=== PATIENT | female | born 1935 | race Caucasian/White ===

== ENCOUNTER 2020-04-17 13:49 | Outpatient (CLI) | payer MEDICARE, SELFPAY ==
--- NOTE | 2020-04-17 14:01 | XR_ITS ---
WS: [id number] SCREENING DEXA SCAN [employer] CLINICAL INFORMATION: POSTMENOPAUSAL OSTEOPOROSIS COMPARISON: None. FINDINGS: The L1-L4 bone mineral density measures 1.478 g/cm2. This corresponds to a T score score of 2.5 and Z score of 4.2. Left femoral neck bone mineral density measures 0.857 g/cm2. This corresponds to a T score of -1.2 an d Z score of 0.8. Right femoral neck bone mineral density measures 0.871 g/cm2. This corresponds to a T score -1.1of an d Z score of 0.9. Mean femoral neck bone mineral density measures 0.864 g/cm2. This corresponds to a T score of -1.1 an d Z score of 0.9. XR/XR DEXA axial skeleton* [id number] IMPRESSION: Normal bone mineralization lumbar spine. Osteopenia in the femoral necks. Patient's FRAX calculated 10 year probability for major osteoporotic fracture i s 28.0 % and osteoporotic hip fracture is 17.9%.
== END 2020-04-17 13:50 | disposition home or self-care (01) ==
LOC: RADWPI 13:59
PROVIDERS: Family Provider Family Medicine; PCP Family Medicine; Visit Provider Family Medicine
DX: M81.0 Age-related osteoporosis without current pathological fracture (principal); Z78.0 Asymptomatic menopausal state; M85.89 Other specified disorders of bone density and structure, multiple sites
CPT/HCPCS: 77080

== ENCOUNTER 2022-01-14 16:02 | Outpatient (CLI) | payer MEDICARE, SELFPAY ==
--- NOTE | 2022-01-14 16:17 | CT_ITS ---
WS: [id number] CT HEAD TECHNIQUE: Noncontrast CT of the head obtained from the skullbase to the vertex. CLINICAL INFORMATION: CVA COMPARISON: None. DLP: 981.[address] scans at [facility] use at least one of these dose optimization techniques: automated e xposure control; mA and/or kV adjustment per patient size (includes targeted exams where dose is matc hed to clinical indication); or iterative reconstruction. FINDINGS: No evidence of intracranial hemorrhage or mass effect. Ventricular system and basal cisterns are neumann nt. Moderate small vessel changes with moderate parenchymal volume loss. Benign calcification RIGHT g reater than LEFT basal ganglia. No extra-axial fluid collections. No evidence of mass or mass effect. Intracranial vascular calcification. A few tiny chronic lacunar infarcts in the basal ganglia. Tiny chronic lacunar infarcts RIGHT cerebellum and LEFT elidia.. Mild mucosal thickening in the paranasal sinuses. Mastoid air cells are well aerated.Normal visualize d soft tissues. CT/CT head wo con* [id number] IMPRESSION: 1. No evidence of intracranial hemorrhage or mass effect. 2. Moderate small vessel changes with moderate parenchymal volume loss. 3. No acute intracranial findings. Notified Mai MCLAUGHLIN at 01/14/2022 4:41 PM.
== END 2022-01-14 16:03 | disposition home or self-care (01) ==
LOC: RAD 16:05
PROVIDERS: PCP Family Medicine; Visit Provider Family Medicine
DX: I63.9 Cerebral infarction, unspecified (principal)
CPT/HCPCS: 70450

== ENCOUNTER 2022-07-30 13:38 | Outpatient (CLI) | payer MEDICARE, SELFPAY ==
--- NOTE | 2022-07-30 13:56 | USCV_ITS ---
Tiffanie Leija Age: 86 Gender: F : 1935 Exam Date: 07/30/2022 14:30 Ordering Phys: Jonny Godwin MD Technologist: [place] [facility] [place]: murmur BP: 120 / 71 HR: 73 Rhythm: Sinus Technical Quality: Adequate MEASUREMENTS (Male / Female) Normal Values 2D ECHO LV Diastolic Diameter PLAX 4.1 cm 4.2 - 5.9 / 3.9 - 5.3 cm LV Systolic Diameter PLAX 2.2 cm IVS Diastolic Thickness 1.2 cm 0.6 - 1.0 / 0.6 - 0.9 cm IVS Systolic Thickness 2.0 cm LVPW Diastolic Thickness 1.5 cm 0.6 - 1.0 / 0.6 - 0.9 cm LVPW Systolic Thickness 1.4 cm LVOT Diameter 2.0 cm LV Ejection Fraction 2D Teich 78.2 % LV Ejection Fraction MOD 2C 72.3 % LV Ejection Fraction 2C AL 72.0 % LA Diameter 3.4 cm Aorta at Sinotubular Diameter 2.2 cm M-MODE Aortic Annulus Diameter 3.8 cm LA Ao Ratio MM 0.9 MV E Point Septal Separation 0.9 cm DOPPLER AV Peak Velocity 107.0 cm/s LVOT Peak Velocity 86.0 cm/s AV Area Cont Eq vti 2.6 cm squared AV Area Cont Eq pk 2.6 cm squared MV Area PHT 5.1 cm squared Mitral E to A Ratio 0.6 MV E' Velocity 36.5 cm/s Mitral E to MV E' Ratio 9.5 Mitral E to LV E' Lateral Ratio 9.1 Mitral E to LV E' Septal Ratio 9.9 TR Peak Velocity 220.3 cm/s TR Peak Gradient 19.4 mmHg TV Peak E Velocity 110.0 cm/s Right Atrial Pressure 3.0 mmHg Pulmonary Artery Systolic Pressu 22.4 mmHg RV Acceleration Time 0.2 s FINDINGS Left Ventricle Normal left ventricular size and systolic function, EF 71 %. Mild left ventricular hypertrophy. No regional wall motion abnormalities. Grade I/IV diastolic dysfunction (abnormal relaxation filling pattern), normal to mildly elevated filling pressures. Right Ventricle The right ventricle is normal in size and function. Right Atrium The right atrium is normal in size. Left Atrium The left atrium is normal in size. Mitral Valve Thickened mitral valve. Mild mitral annular calcification. Mild mitral valve regurgitation. Aortic Valve Thickened aortic valve. Mild aortic valve regurgitation. Tricuspid Valve Trace tricuspid valve regurgitation. Pulmonic Valve No gross abnormalities noted Pericardium Normal pericardium without effusion. Aorta Normal ascending aorta dimension. IVC The inferior vena cava appears normal. CONCLUSIONS Normal left ventricular size and systolic function, EF 71 %. Mild left ventricular hypertrophy. No regional wall motion abnormalities. Grade I/IV diastolic dysfunction (abnormal relaxation filling pattern), normal to mildly elevated filling pressures. Thickened mitral valve. Mild mitral annular calcification. Mild mitral valve regurgitation. Thickened aortic valve. Mild aortic valve regurgitation. Trace tricuspid valve regurgitation. Estimated pulmonary artery peak systolic pressure 22 mmHg There is no pericardial effusion. There are no intracardiac masses. No similar previous studies are available for comparison Dr Lavelle Pardo MD [facility] (Electronically Signed) Final Date: 31 July 2022 07:49 S
== END 2022-07-30 13:39 | disposition home or self-care (01) ==
PROVIDERS: PCP Family Medicine; Visit Provider Family Medicine
DX: R01.1 Cardiac murmur, unspecified (principal); I51.89 Other ill-defined heart diseases; I34.0 Nonrheumatic mitral (valve) insufficiency; I35.1 Nonrheumatic aortic (valve) insufficiency
CPT/HCPCS: 93306

== ENCOUNTER → 2023-01-07 13:45 | Outpatient (BNVA) | payer MEDICARE, SELFPAY | PROVIDERS: PCP Family Medicine; Visit Provider Dermatology | DX: D04.4 Carcinoma in situ of skin of scalp and neck (principal); L11.9 Acantholytic disorder, unspecified | CPT/HCPCS: 88305 ==

== ENCOUNTER 2024-01-14 14:45 | Outpatient (CLI) | payer MEDICARE, SELFPAY ==
--- NOTE | 2024-01-14 14:49 | CT_ITS ---
WS: [id number] CT HEAD NONCONTRAST HISTORY: ACUTE CVA, EXPRESSIVE APHAGIA TECHNIQUE: Contiguous axial imaging performed through the brain in 2.5 mm imaging. Bone and soft tiss ue windows. Sagittal and coronal reformats reviewed. All CT scans at [facility] use at least one of these dose optimization techniques: automated exposure control; mA and/or kV adjustment per pa tient size (includes targeted exams where dose is matched to clinical indication); or iterative recon struction. DLP: 1092.24 mGy.cm COMPARISON: 01/14/2022 No acute intracranial hemorrhage, midline shift or mass effect. Mild atrophy with has slightly progressed since 01/14/2022. No acute hemorrhage. No new infarct identif ied. Mild small vessel ischemic disease. Dense benign calcification RIGHT basal ganglia. Ventricles: Normal size with no hydrocephalus. No inferior displacement of the cerebellar tonsils. Paranasal sinuses: As visualized are clear. Mastoid air cells: Well pneumatized. Calvarium and scalp: Skull is intact with no soft tissue edema or swelling. IMPRESSION: 1. No acute intracranial hemorrhage or edema. 2. Mild atrophy and small vessel ischemic disease. Mild progression since 01/14/2022 but no acute inte rval edema.
== END 2024-01-14 14:46 | disposition home or self-care (01) ==
LOC: RAD 14:45
PROVIDERS: PCP Family Medicine; Visit Provider Family Medicine
DX: I63.9 Cerebral infarction, unspecified (principal); R47.01 Aphasia
CPT/HCPCS: 70450

== ENCOUNTER 2024-02-16 08:57 | Outpatient (CLI) | payer MEDICARE, SELFPAY ==
[2024-02-16 09:48] LABS: Blood Urea Nitrogen 21 mg/dL (8-23)
== END 2024-02-16 08:58 | disposition home or self-care (01) ==
PROVIDERS: Radiology Neuroradiology; PCP Family Medicine; Visit Provider Family Medicine
DX: I65.09 Occlusion and stenosis of unspecified vertebral artery (principal)
CPT/HCPCS: 82565; 84520

== ENCOUNTER 2024-05-18 10:04 | Emergency (ER) | payer MEDICARE, SELFPAY ==
--- NOTE | 2024-05-18 10:24 | ECG_ITS ---
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 Measurements Intervals [place] Rate: 83 P: 60 MA: 167 QRS: 25 QRSD: 86 T: 85 QT: 369 QTc: 434 Interpretive Statements SINUS RHYTHM POSSIBLE LEFT ATRIAL ENLARGEMENT [-0.1mV P-WAVE IN V1/V2] NONSPECIFIC T-WAVE ABNORMALITY Compared to ECG 01/30/2017 18:34:32 T-wave abnormality now present Myocardial infarct finding no longer present Electronically Signed On 05-18-2024 17:11:46 CDT by Mahesh Larsen M.D. [email or web address]/store/[id number] f
[2024-05-18 10:40] VITALS: BP 158/80; PULSE 81; TEMP 36.4; O2SAT 99; BMI 24.0
--- NOTE | 2024-05-18 10:51 | XR_ITS ---
WS: [id number] Portable AP upright chest, 05/18/2024 Clinical Data: dyspnea/cough Comparison: Two-view chest, 01/30/2017. Findings: No nodules, masses or effusions are seen. The heart is normal. The pulmonary vascularity is not increased. No pneumonia or pneumothorax is seen. The aortic arch and descending thoracic aorta s how calcification and tortuosity. XR/XR chest 1V portable [id number] Impression: Atherosclerosis.
--- NOTE | 2024-05-18 11:06 | ED_ITS ---
HPI - Weakness 2 General: Chief complaint: Weakness Stated complaint: SOB, weakness Time Seen by Provider: 05/18/24 10:37 Source: patient Mode of arrival: ambulatory History of Present Illness: 88-year-old female presents emergency ro om complaining of shortness of breath and weakness. She states it is worse when she first gets up in the morning and improves as the day goes on. She denies fever sweats or chills. Denies dysuria urgency or frequency. She was previously on blood pressure medications but stopped them all she states she titrated down because she felt she had side effects. This was obtained from timeframe in which her symptoms worsened. She is also concerned about the finding of her vertebral artery stenosis and that she may be having a stroke. However she has not had any weakness or difficulty with speech or walking or swallowing or vision. MD Complaint: generalized weakness Relieving factors: none Exacerbating factors: none Associated symptoms: Denies chest pain, chills, confusion, melena, decreased appetite, diaphoresis, dysuria, easy bruising, fever(s), headache(s), myalgias, nausea, rash, short of breath, syncope or vomiting Review of Systems 2 Const: Denies: fever(s), chills or diaphoresis Card: Denies: chest pain or syncope Resp: Denies: dyspnea GI: Denies: abdominal pain, nausea, vomiting or melena : Denies: dysuria Musc: Denies: neck pain or back pain Skin/Breast: Denies: rash Neuro: Denies: headache(s) or confusion Bishop/Lymph: Denies: easy bruising PFSH ED 2 PFSH: Medical History History of kidney cancer Type 2 diabetes mellitus with diabetic polyneuropathy Surgical History History of back surgery Social History Smoking and tobacco/nicotine status: never used tobacco/nicotine Physical Exam 2 Const: GENERAL APPEARANCE: cooperative and comfortable O RIENTATION/CONSCIOUSNESS: Yes awake, Yes oriented to person, Yes oriented to place and Yes oriented to time HENMT: COMMON NORMALS: normocephalic, atraumatic and hearing grossly normal bilaterally HEAD & SCALP: normocephalic and atraumatic Resp: COMMON NORMALS: normal respiratory effort, No retractions, No use of accessory muscles and clear to auscultation bilaterally AUSCULTATION: clear to auscultation bilaterally Cardio: COMMON NORMALS: regular rate, regular rhythm and No murmurs present (Cardio) RATE: regular rate RHYTHM: regular rhythm GI: COMMON NORMALS: Soft to palpation and No hepatosplenomegaly present A USCULTATION: Yes normoactive bowel sounds PALPATION: Yes Soft to palpation, No Tenderness to palpation present (GI), No Guarding due to palpation present (GI) and Yes No hepatosplenomegaly present Extremity: COMMON NORMALS: normal to inspection, capillary refill normal, no clubbing, cyanosis or edema, no calf tenderness and no pedal edema Neuro: SENSORIUM/ORIENTATION: Yes oriented to person, Yes oriented to place and Yes oriented to time Skin: COMMON NORMALS: no rashes or lesions noted GENERAL SKIN EXAM: no rashes or lesions noted Course 2 Vital Signs: Vital signs: Vital Signs Temperature 97.6 F 05/18/24 10:40 Pulse Rate 85 05/18/24 15:15 Blood Pressure 158/80 05/18/24 10:40 Pulse Oximetry 98 05/18/24 15:15 Oxygen Delivery Me thod Room Air 05/18/24 13:21 MDM - Weakness Medical Decision Making CT of head negative. She does have a mild elevation of her creatinine but is unchanged from 3 months ago. Will restart her for her blood pressure on amlodipine 5 mg daily. She should recheck with her primary care doctor within the next week. 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 Medical Records I reviewed the patient's medical records. Lab Data I reviewed the patient's lab results. 05/18/24 11:00 05/18/24 11:00 Radiology Impressions Chest X-Ray 05/18/24 10:51 Impression: Atherosclerosis. Head CT 05/18/24 12:38 IMPRESSION: No acute intracranial hemorrhage or mass effect. Laboratory Results WBC 6.83 10^3/uL (3.29-11.43) 05/18/24 11:00 RBC 4.33 10^6/uL (3.85-5.65) 05/18/24 11:00 Hgb 11.40 g/dL (11.27-16.99) 05/18/24 11:00 Hct 36.1 % (36-47) 05/18/24 11:00 MCV 83.4 fl (85-98) L 05/18/24 11:00 MCH 26.3 pg (27-33) L 05/18/24 11:00 MCHC 31.6 g/dL (30-55) 05/18/24 11:00 RDW 14.0 % (12.1-15.1) 05/18/24 11:00 Plt Count 308 10^3/cmm (157-399) 05/18/24 11:00 MPV 10.0 fL (7.4-10.4) 05/18/24 11:00 Neut % (Auto) 74.2 % 05/18/24 11:00 Lymph % (Auto) 17.1 % 05/18/24 11:00 [place] % (Auto) 6.6 % 05/18/24 11:00 Eos % (Auto) 1.2 % 05/18/24 11:00 Baso % (Auto) 0.6 % 05/18/24 11:00 Neut # (Auto) 5.07 10^3/uL (1.8-7.7) 05/18/24 11:00 Lymph # (Auto) 1.2 10^3/uL (0.8-4.8) 05/18/24 11:00 [place] # (Auto) 0.5 10^3/uL (0.2-0.9) 05/18/24 11:00 Eos # (Auto) 0.1 10^3/uL (0.0-0.8) 05/18/24 11:00 Baso # (Auto) 0.0 10^3/uL (0.0-0.1) 05/18/24 11:00 Nucleated RBC % (auto) 0 % 05/18/24 11:00 Nucleated RBCs # 0.0 /100WBC 05/18/24 11:00 Sodium 135 mmol/L (136-145) L 05/18/24 11:00 Potassium 4.4 mmol/L (3.5-5.1) 05/18/24 11:00 Chloride 100 mmol/L (98-107) 05/18/24 11:00 Carbon Dioxide 20 mmol/L (22-29) L 05/18/24 11:00 Anion Gap 19.4 (5-19) H 05/18/24 11:00 BUN 25 mg/dL (8-23) H 05/18/24 11:00 Creatinine 1.7 mg/dL (0.5-0.9) H 05/18/24 11:00 GFR Calculation Not Reportable 05/18/24 11:00 Glucose 337 mg/dL (65-115) H 05/18/24 11:00 Calculated Osmolality 298 mOsm/kg (285-295) H 05/18/24 11:00 Calcium 8.8 mg/dL (8.5-10.5) 05/18/24 11:00 Total Bilirubin 0.5 mg/dL (0.15-1.2) 05/18/24 11:00 AST 11 U/L (0-32) 05/18/24 11:00 ALT 8 U/L (0-33) 05/18/24 11:00 Alkaline Phosphatase 111 U/L (35-105) H 05/18/24 11:00 Troponin T Baseline 18 ng/L (0-10) H 05/18/24 11:00 Troponin T 120 Minute 18.18 ng/L (0-10) H 05/18/24 13:07 Delta Troponin T 0.18 ABS# (0-10) 05/18/24 13:07 Total Protein 5.8 g/dL (6.6-8.7) L 05/18/24 11:00 Albumin 3.7 g/dL (3.5-5.2) 05/18/24 11:00 Globulin 2.1 g/dL (1.3-4.6) 05/18/24 11:00 Urine Color Yellow (Yellow) 05/18/24 13:55 Urine Appearance Clear (CLEAR) 05/18/24 13:55 Urine pH 8 (5-7) H 05/18/24 13:55 Ur Specific [place] 1.005 (1.005-1.030) 05/18/24 13:55 Urine Protein Neg (Negative) 05/18/24 13:55 Urine Glucose (UA) 4+ (Normal) H 05/18/24 13:55 Urine Ketones 1+ (Negative) H 07/10/24 13:55 Urine Blood Neg (Negative) 05/18/24 13:55 Urine Nitrate Negative (Negative) 05/18/24 13:55 Urine Bilirubin Neg (Negative) 05/18/24 13:55 Urine Urobilinogen Norm mg/dL (Negative) 05/18/24 13:55 Ur Leukocyte Esterase Trace (Negative) H 05/18/24 13:55 Urine RBC 0-4 /hpf (0-2) H 05/18/24 13:55 Urine WBC 0-4 /hpf (0-5) H 05/18/24 13:55 Ur Squamous Epith Cells 0-4 /hpf (0-5) H 05/18/24 13:55 Amorphous Sediment Not Reportable 05/18/24 13:55 Urine Bacteria 1+ /hpf (NONE) H 05/18/24 13:55 All radiology interpretation(s) finalized by discharge Discharge Plan Discharge Patient Disposition: Home Clinical Impression: HTN (hypertension) Condition: Stable Prescriptions: New amlodipine 5 mg tablet 5 mg PO DAILY Qty: 30 0RF Discontinued amlodipine 10 mg tablet 10 tab PO DAILY glipizide 5 mg tablet extended release 24hr See Rx Instructions .ROUTE .COMPLEX Rx Instructions: TAKE 2 TABLETS BY MOUTH IN THE MORNING AND 1 TABLET IN THE EVENING. irbesartan 75 mg tablet 1 tab PO DAILY No Action pantoprazole 40 mg tablet,delayed release (DR/EC) 1 tab PO DAILY rosuvastatin 40 mg tablet 1 tab PO QPM levothyroxine 75 mcg tablet 1 tab PO QAM (DME) OneTouch Verio test strips Strip See Rx Instructions .ROUTE .MEDSUPPLY Qty: 10 Rx Instructions: As directed fluoxetine 20 mg capsule 20 mg PO DAILY clopidogrel 75 mg tablet 75 mg PO DAILY fluticasone propionate 50 mcg/actuation spray,suspension 2 spray INTRANASAL DAILY Novolin 70-30 FlexPen U-100 100 unit/mL (70-30) Insulin Pen See Rx Instructions .ROUTE .COMPLEX Rx Instructions: INJECT 20 UNITS IN THE MORNING AND 30 UNITS IN THE EVENING. Ozempic 0.25 mg or 0.5 mg (2 mg/3 mL) pen injector 0.5 mg SUBCUT Q7D Discharge Orders: Discharge ED (Routine); Ordered 05/18/24 Ordered By: Ben Chavez Referrals: Cara Velazquez DO [Primary Care Provider] - Discharge Diet: Usual diet Discharge Activity: Increase activity as tolerated Patient Instructions: Opioid Safety, Pain Management Activity Restrictions/Additional Instructions: Thank you for choosing [facility] for your healthcare needs today. It is very important that you follow up as instructed or that you return to the Emergency Department should you have concerns or if your condition changes or worsens in any way. You are seen today for not feeling well your laboratory test did not show significant abnormalities although your kidney function is somewhat elevated it has been this way chronically. CT of your head was negative. 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 Would recommend that you restart amlodipine 5 mg once daily for your blood pressure. Stop the glipizide and irbesartan. Follow-up with your physician within the next week to recheck blood pressure Coding Level of Care Code ED Director Of Email Marketing for Abby Kulkarni
--- NOTE | 2024-05-18 11:13 | ECG_ITS ---
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 Measurements Intervals [place] Rate: 81 P: 60 ND: 177 QRS: 25 QRSD: 80 T: 83 QT: 375 QTc: 437 Interpretive Statements SINUS RHYTHM POSSIBLE LEFT ATRIAL ENLARGEMENT [-0.1mV P-WAVE IN V1/V2] NONSPECIFIC T-WAVE ABNORMALITY Compared to ECG 05/18/2024 10:24:34 No significant changes Electronically Signed On 05-18-2024 17:13:45 CDT by Mahesh Larsen M.D. [email or web address]/store/[id number]
[2024-05-18 11:14] LABS: Basophils % 0.6 %; Eosinophils # 0.1 10^3/uL (0.0-0.8); Eosinophils % 1.2 %; Hematocrit 36.1 % (36-47); Lymphocytes # 1.2 10^3/uL (0.8-4.8); Lymphocytes % 17.1 %; Mean Corpuscular HGB Conc 31.6 g/dL (30-55); Mean Corpuscular Hemoglobin 26.3 pg (27-33); Mean Corpuscular Volume 83.4 fl (85-98); Monocytes # 0.5 10^3/uL (0.2-0.9); Monocytes % 6.6 %; Neutrophils # 5.07 10^3/uL (1.8-7.7); Neutrophils % 74.2 %; Nucleated Red Blood Cells % 0 %; Platelet Count 308 10^3/cmm (157-399); Red Blood Count 4.33 10^6/uL (3.85-5.65); White Blood Count 6.83 10^3/uL (3.29-11.43)
--- NOTE | 2024-05-18 11:16 | PC.PHAR ---
PT STATES STOPPED TAKING AMLODIPINE 10 MG DUE TO CONSISTENTLY LOW BLOOD PRESSURE. PT HAS NOT TAKEN HER MEDICATIONS OR HER INSULIN TODAY.
[2024-05-18 11:39] LABS: Troponin(5th) Baseline 18 ng/L (0-10)
[2024-05-18 11:47] LABS: Alanine Aminotransferase 8 U/L (0-33); Albumin Level 3.7 g/dL (3.5-5.2); Alkaline Phosphatase 111 U/L (35-105); Anion Gap 19.4 (5-19); Aspartate Amino Transferase 11 U/L (0-32); Blood Urea Nitrogen 25 mg/dL (8-23); Calcium 8.8 mg/dL (8.5-10.5); Carbon Dioxide 20 mmol/L (22-29); Chloride 100 mmol/L (98-107); Globulin 2.1 g/dL (1.3-4.6); Glucose 337 mg/dL (65-115); Osmolality Calculated 298 mOsm/kg (285-295); Potassium 4.4 mmol/L (3.5-5.1); Sodium 135 mmol/L (136-145); Total Bilirubin 0.5 mg/dL (0.15-1.2); Total Protein 5.8 g/dL (6.6-8.7)
--- NOTE | 2024-05-18 12:38 | CTR_ITS ---
PROCEDURE INFORMATION: Exam: CT Head Without Contrast Exam date and time: 05/18/2024 12:59 PM Age: 88 years old Clinical indication: Weakness TECHNIQUE: Imaging protocol: Computed tomography of the head without contrast. Radiation optimization: All CT scans at this facility use at least one of these dose optimization techniques: automated exposure control; mA and/or kV adjustment per patient size (includes targeted exams where dose is matched to clinical indication); or iterative reconstruction. COMPARISON: CT head wo con* [id number] 01/14/2024 2:55 PM RADIATION DOSE METRICS: Total DLP (mGy-cm): 1036 FINDINGS: Brain: No acute intracranial hemorrhage or abnormal intracranial mass effect is identified. There are chronic appearing small-vessel ischemic changes within both cerebral hemispheres. MR diffusion imaging could provide more sensitive assessment for acute ischemia, if clinically warranted and not otherwise contraindicated. There are no subdural collections. Prominent atherosclerotic calcifications involve the carotid siphons. Cerebral ventricles: Size within normal range for age. No midline shift. Paranasal sinuses: Imaged portions of the paranasal sinuses are well-aerated. Mastoid air cells: Visualized portions of mastoid sinuses are not opacified. Bones: Unremarkable. No acute fracture. Soft tissues: Other than as stated above, no obvious acute abnormality. CT/CT head wo con* [id number] IMPRESSION: No acute intracranial hemorrhage or mass effect.
[2024-05-18 13:21] VITALS: PULSE 81; O2SAT 97
[2024-05-18 14:01] LABS: Troponin 5 2HR 18.18 ng/L (0-10); Troponin 5 2HR Delta 0.18 ABS# (0-10)
[2024-05-18 14:24] LABS: Add Urine Microscopic? YES; Bilirubin Urine Neg (Negative); Blood Urine Neg (Negative); Glucose Urine UA 4+ (Normal); Ketones Urine 1+ (Negative); Leukocyte Esterase Urine Trace (Negative); Nitrate Urine Negative (Negative); Protein Urine Neg (Negative); RBC Urine 0-4 /hpf (0-2); Specific Gravity, Urine 1.005 (1.005-1.030); Urine Appearance Clear (CLEAR); Urine Color Yellow (Yellow); Urobilinogen Urine Norm (Negative); WBC Urine 0-4 /hpf (0-5); pH Urine 8 (5-7)
[2024-05-18 14:25] LABS: Bacteria Urine 1+ /hpf; Squamous Epithelial Cell Urine 0-4 /hpf (0-5)
[2024-05-18 15:15] VITALS: PULSE 85; O2SAT 98
== END 2024-05-18 15:18 | disposition home or self-care (01) ==
PROVIDERS: Emergency Provider Family Medicine; PCP Family Medicine
DX: I65.09 Occlusion and stenosis of unspecified vertebral artery (principal); I10 Essential (primary) hypertension; R53.1 Weakness
CPT/HCPCS: 36415; 70450; 71045; 80053; 81001; 84484; 85025; 93005; 99285

== ENCOUNTER → 2024-07-29 09:35 | Outpatient (BNVA) | payer MEDICARE, SELFPAY | PROVIDERS: PCP Family Medicine; Visit Provider Internal Medicine Cardiovascular Disease | DX: R00.2 Palpitations (principal); R42 Dizziness and giddiness; I49.9 Cardiac arrhythmia, unspecified; I10 Essential (primary) hypertension | CPT/HCPCS: 99204 ==

== ENCOUNTER → 2024-08-29 09:51 | Outpatient (BNVA) | payer MEDICARE, SELFPAY | PROVIDERS: PCP Family Medicine; Visit Provider Nurse Practitioner Family | DX: R00.2 Palpitations (principal); I10 Essential (primary) hypertension | CPT/HCPCS: 99213 ==

== ENCOUNTER 2025-01-13 12:39 | Outpatient (CLI) | payer MEDICARE, SELFPAY ==
--- NOTE | 2025-01-13 13:16 | MR_ITS ---
WS: [id number] MRI LUMBAR SPINE NONCONTRAST TECHNIQUE: Sagittal T1, T2 and STIR imaging. Axial T1 and T2 imaging. CLINICAL INFORMATION: VERTEBROGENIC LOW BACK PAIN COMPARISON: None. FINDINGS: Lumbar scoliosis. Multilevel degenerative disc disease. Osteopenia. L1-L2: Mild disc bulge with endplate ridging. RIGHT foraminal protrusion impinges the exiting RIGHT L1 nerve root with moderate to severe RIGHT foraminal narrowing. Impingement on the RIGHT greater than LEFT subarticular recess. Moderate facet arthropathy. L2-L3: Mild disc bulging with mild to moderate central canal stenosis. Severe impingement on the subarticular recess bilaterally and traversing L3 nerve roots. Moderate facet arthropathy. Moderate RIGHT and no significant LEFT foraminal narrowing. L3-L4: Slight retrolisthesis. Mild disc bulging with moderate central canal stenosis. Severe impingement subarticular recess. Moderate facet arthropathy. Moderate LEFT greater than RIGHT foraminal narrowing. L4-L5: Disc osteophyte ridging. Severe LEFT foraminal narrowing. RIGHT foramen is patent. Mild facet arthropathy. Mild narrowing of the RIGHT greater than LEFT subarticular recess. L5-S1: Mild disc bulging with a shallow central protrusion. Impingement on traversing LEFT greater than RIGHT S1 nerve roots. Moderate facet arthropathy. Mild RIGHT foraminal narrowing. Multicystic LEFT kidney. T2 hyperintense LEFT renal mass has a heterogeneous appearance suspicious for neoplasm. No recent studies for comparison. Prior RIGHT nephrectomy. Visualized pelvic bony structures: Normal. Paravertebral soft tissues: Normal. MR/MR lumbar spine wo con* [id number] IMPRESSION: 1. Heterogeneous T2 hyperintense mass LEFT kidney suspicious for neoplasm anmol uring approximately 4.1 x 3.5 cm. Recommend further evaluation with ultrasound and/or contrast-enhanced CT abdomen pelvis. Prior RIGHT nephrectomy. 2. Mild to moderate central canal stenosis L2-L3 and moderate L3-L4 with impin gement of the subarticular recess bilaterally worse at L3-4. 3. Disc bulge L5-S1 impinges the traversing LEFT greater than RIGHT S1 nerve r oots. 4. Multilevel foraminal narrowing described above worse at RIGHT L1-2, RIGHT L 2-3, LEFT L3-4 and LEFT L4-5. Severe LEFT L4-5 foraminal narrowing.
== END 2025-01-13 12:40 | disposition home or self-care (01) ==
PROVIDERS: PCP Family Medicine; Visit Provider Nurse Practitioner
DX: M51.26 Other intervertebral disc displacement, lumbar region (principal); Z90.5 Acquired absence of kidney; M48.061 Spinal stenosis, lumbar region without neurogenic claudication; M51.379 Other intervertebral disc degeneration, lumbosacral region without mention of lumbar back pain or lower extremity pain; M41.86 Other forms of scoliosis, lumbar region; M51.369 Other intervertebral disc degeneration, lumbar region without mention of lumbar back pain or lower extremity pain; M85.88 Other specified disorders of bone density and structure, other site; M47.896 Other spondylosis, lumbar region; M25.78 Osteophyte, vertebrae; M48.07 Spinal stenosis, lumbosacral region; M47.897 Other spondylosis, lumbosacral region; R93.7 Abnormal findings on diagnostic imaging of other parts of musculoskeletal system; N28.89 Other specified disorders of kidney and ureter; R93.422 Abnormal radiologic findings on diagnostic imaging of left kidney
CPT/HCPCS: 72148

== ENCOUNTER → 2025-01-24 10:52 | Outpatient (BNVA) | payer MEDICARE, SELFPAY | PROVIDERS: PCP Family Medicine; Visit Provider Internal Medicine Cardiovascular Disease | DX: I10 Essential (primary) hypertension (principal); I47.20 Ventricular tachycardia, unspecified | CPT/HCPCS: 99213 ==

== ENCOUNTER 2025-03-31 12:09 | Outpatient (CLI) | payer MEDICARE, SELFPAY ==
--- NOTE | 2025-03-31 12:16 | PETR_ITS ---
PROCEDURE INFORMATION: Exam: PET/CT Skull Base to Mid-thigh Exam date and time: 03/31/2025 1:11 PM Age: 89 years old Clinical indication: Condition or disease; Primary cancer: Malignant neoplasm of kidney LABS AND CLINICAL REPORTS: Glucose: 178 mg/dl Treatment strategy for malignancy (PET staging): Initial Staging (PI) TECHNIQUE: Imaging protocol: Following at least four-hour fasting and following the injection of radiopharmaceutical, low dose CT images were obtained. Then, PET images were obtained. Attenuation corrected images were constructed using the CT scan. Fused images of PET and CT were reviewed. The standardized uptake values (SUV) reported below are maximum values within a region of interest, expressed in gm/ml. Exam includes orbital meatal line to mid-thigh. SUV normalization method: BodyWeight Radiopharmaceutical: 11.16 mCi F-18 FDG (Fluorodeoxyglucose), IV. Time of imaging post radiopharmaceutical administration: 51 minutes Injection site: right ac COMPARISON: MR lumbar spine wo con* [id number] 01/13/2025 1:31 PM FINDINGS: Brain: Visualized brain has normal physiologic uptake. Paranasal sinuses: Mild non FDG avid right maxillary sinus secretions. Pharynx: No abnormal uptake. Larynx: No abnormal uptake. Lungs, pleura and trachea: 1.2 cm central posterior left upper lobe nodule on axial image 107 shows SUV max 2.4. Non FDG avid 5 mm right lower lobe nodule on axial image 118. Calcified granulomata. Heart: Normal physiologic uptake. Coronary arteries: Heavy coronary artery calcification. Mediastinal space: No abnormal uptake. Liver: No abnormal uptake. Gallbladder and biliary ducts: No abnormal uptake. Pancreas: No abnormal uptake. Spleen: No abnormal uptake. Calcified granulomata. Adrenal glands: No abnormal uptake. Kidneys and ureters: Prior right nephrectomy. Heterogeneous posterior left lower renal mass measures approximately 5.3 x 4.7 cm on axial image 164 and shows SUV max 3.6 on axial image 163. This corresponds to finding of concern on comparison lumbar spine MRI. Additional area of relative increased FDG uptake at the lateral left upper renal cortex showing SUV max 4.5 on axial image 148 with underlying mild parenchymal contour deformity but no discretely measurable lesion. Stomach and bowel: Multifocal segmental small bowel FDG uptake without underlying CT abnormality may be physiologic or possibly inflammatory. Colonic diverticulosis without findings of diverticulitis. Reproductive: The uterus is surgically absent. Vasculature: No abnormal uptake. Heavy systemic atherosclerotic calcification without aortic aneurysm. Lymph nodes: No abnormal uptake. No lymphadenopathy in the head, neck, chest, abdomen, pelvis, and extremities. Calcified left hilar nodes in keeping with sequela of old granulomatous disease. Skeleton: Redemonstrated lumbar scoliosis. Degenerative change along the axial skeletal system and acromioclavicular joints. Complete loss of the superolateral right hip joint space with associated acetabular spurring, subchondral sclerosis and cystic change. There is also periarticular soft tissue thickening and mild FDG uptake. Soft tissues: No abnormal uptake in the visualized head, neck, chest, abdomen, pelvis, and extremities. METRICS: Mediastinal blood pool: SUV mean 2.2 Liver uptake: SUV mean 2.5 PET/PET skull to thigh INIT [id number] IMPRESSION: 1. Mildly FDG avid left lower renal mass corresponding to finding of concern on comparison MRI suspicious for malignancy. 2. Additional focal area of relative increased FDG uptake at the left upper kidney also concerning for malignancy. Consider dedicated renal imaging (ultrasound, MRI, or CT without and with contrast) if not already performed. 3. 1.2 cm left upper lobe nodule with low-level FDG uptake concerning for metastasis given above findings. 4. 5 mm right lower lobe nodule too small to accurately assess for FDG uptake. 5. Right hip periarticular soft tissue thickening and mild FDG uptake is likely inflammatory, possibly related to severe osteoarthritis. Consider MRI as clinically indicated. 6. Additional chronic and incidental findings as above, to include colonic diverticulosis and atherosclerosis with heavy coronary artery calcification.
== END 2025-03-31 12:10 | disposition home or self-care (01) ==
PROVIDERS: PCP Family Medicine; Visit Provider Family Medicine
DX: C64.2 Malignant neoplasm of left kidney, except renal pelvis (principal); N28.89 Other specified disorders of kidney and ureter; J34.89 Other specified disorders of nose and nasal sinuses; R91.8 Other nonspecific abnormal finding of lung field; J84.10 Pulmonary fibrosis, unspecified; I25.10 Atherosclerotic heart disease of native coronary artery without angina pectoris; D73.89 Other diseases of spleen; Z98.890 Other specified postprocedural states; R93.89 Abnormal findings on diagnostic imaging of other specified body structures; K57.30 Diverticulosis of large intestine without perforation or abscess without bleeding; I70.0 Atherosclerosis of aorta; R59.0 Localized enlarged lymph nodes; M41.86 Other forms of scoliosis, lumbar region; M47.9 Spondylosis, unspecified; M19.012 Primary osteoarthritis, left shoulder; M19.011 Primary osteoarthritis, right shoulder; M24.851 Other specific joint derangements of right hip, not elsewhere classified; M79.89 Other specified soft tissue disorders
CPT/HCPCS: 78815; A9552

== ENCOUNTER 2025-05-02 06:25 | Outpatient (CLI) | payer MEDICARE, SELFPAY ==
--- NOTE | 2025-05-02 06:30 | MRR_ITS ---
PROCEDURE INFORMATION: Exam: MR Abdomen Without Contrast Exam date and time: 05/02/2025 6:38 AM Age: 89 years old Clinical indication: Abnormal findings; Abnormal radiologic finding of the abdomen; Radiologic exam and body structure: Pet; Prior surgery; Surgery date: 6+ months; Surgery type: Right nephrectomy; HX of kidney cancer; Additional info: Left renal masses on pet/ct. CR 1.66 so no gadolinium, mri using kidney protocol as much as feasible. TECHNIQUE: Imaging protocol: Magnetic resonance imaging of the abdomen without contrast. COMPARISON: PT PET skull to thigh INIT [id number] 03/31/2025 1:11 PM FINDINGS: Liver: No mass. Gallbladder and biliary ducts: Unremarkable. No stones. No ductal dilation. Pancreas: Unremarkable. No ductal dilation. Spleen: Unremarkable. No splenomegaly. Adrenal glands: Unremarkable. No mass. Kidneys: There are postsurgical changes of right nephrectomy. No discrete mass within the right renal fossa. There is a heterogeneous solid lesion arising from the lower pole of the left kidney which measures 4.9 cm AP by 4.9 cm transverse. The lesion is nearly isointense to the parenchyma on T1 and T2 weighted images with subtle areas of T2 hyperintensity centrally. There is a focal lesion within the midpole of the left kidney which measures 1.8 x 1.4 cm which is slightly hyperintense to the renal parenchyma on T2 weighted images and isointense on T1 weighted images No hydronephrosis. There are subcentimeter cystic lesions within the upper pole of the left kidney Stomach and bowel: Visualized stomach and intestines are unremarkable. Intraperitoneal space: No free fluid. Vasculature: No abdominal aortic aneurysm. Lymph nodes: No enlarged nodes. Bones/joints: There is left convexity lumbar scoliosis. Soft tissues: There is focal laxity of the right lateral abdominal wall. MR/MR abdomen wo con [id number] IMPRESSION: 1. Heterogeneous solid lesion within the lower pole of the left kidney. Characterization is limited without intravenous contrast however findings are concerning for renal neoplasm. 2. 1.8 cm lesion arising from the upper pole of the left kidney which is indeterminate between a complex cyst or solid lesion. Correlation with renal ultrasound could be obtained for further evaluation COMMENTS: Consistent with the [employer]'s Incidental Findings Committee white paper (J Am Ximena Radiol 2018): Any incidental renal lesion less than 1 cm or classified as too small to characterize, or any incidental cystic renal lesion characterized as simple-appearing, is likely benign. No follow-up imaging is recommended for these lesions per consensus recommendations based on imaging criteria.
== END 2025-05-02 06:26 | disposition home or self-care (01) ==
PROVIDERS: PCP Family Medicine; Visit Provider Radiology Radiation Oncology
DX: N28.89 Other specified disorders of kidney and ureter (principal)
CPT/HCPCS: 74181

== ENCOUNTER 2025-05-08 09:36 | Oncology outpatient (recurring) (ONCR) | payer MEDICARE, SELFPAY ==
--- NOTE | 2025-04-25 13:19 | N.ONRAD NP_ITS ---
Radiation Oncology New Patient Visit Patient: Tiffanie Leija MR#: [id number] : 1935 Age: 89 Sex: Female Dictated by: Dr. 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 Radiotherapy to date: Summary No prior radiation therapy. Chief Complaint / History of Present Illness: New onset of back and flank pain 1996. Right kidney mass found. Underwent nephrectomy and did well. Back pain resolved. Now with chronic stable low back, right hip and knee pain. She has dark ???chocolate??? urine 2 to 3 x las t 3 to 4 months with no overt hematuria. Appetite is not too good. Bowel immanuel Feels very week. MR of L spine 01/14/2024 most significant for a 4.1 x 3.5 cm left lower pole kidney mass. Upper pole not seen. Multilevel foraminal narrowing and central canal stenosis at L2 ???L3. No occult metastatic disease noted in the visualized region. CT chest and abdomen 02/28/2025 posterior LC lung mass 1.2 cm in size. 4.3 cm inferior pole left kidney mass. PET/CT 03/31/2025 1.2 cm posterior LC mass with SV 2.4, 5mm RLL mass with no uptake. Poorly defined Right lateral upper pole mass with uptake and medial lower pole kidney mass with minimal uptake c/w malignancy. Current Medications: amlodipine 5 mg (1/2 x 10 mg) PO DAILY blood sugar diagnostic (OneTouch Verio test strips) As directed clopidogrel 75 mg PO DAILY fluoxetine 20 mg PO DAILY fluticasone propionate 50 mcg/actuation 2 sprays intranasal DAILY insulin NPH and regular human 100 unit/mL (70-30) (Novolin 70-30 FlexPen U-100 Insulin) INJECT 20 UNITS IN THE MORNING AND 30 UNITS IN THE EVENING. levothyroxine 1 tab PO QAM magnesium oxide 400 mg PO DAILY pantoprazole 1 tab PO DAILY rosuvastatin 1 tab PO QPM tramadol 25 mg PO Q6H PRN Allergies: Iodinated Contrast Media Allergy (Verified 01/24/25 11:05) Medical History: No history of collagen vascular disease. No previous radiation therapy. History of kidney cancer Type 2 diabetes mellitus with diabetic polyneuropathy Surgical History: History of back surgery , right nephrectomy. Family History: not obtained. Social History: . Her 92 year old in long-term with dementia. 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 2 sons and 2 daughters. Smoking and tobacco/nicotine status: never used tobacco/nicotine Current Complaints / Review of Systems: . Vital Signs: Performed on 04/24/2025 1:12 PM BMI - 22.83 kg/m2, Height - 64 in, Weight - 133 lbs, Temperature - 97.2 f, Pulse - 81 /min, Respiration - 17 /min, O2 Sat - 96 %, Pain - 0, Fatigue - 0 and BP - 161/ 64 mm(hg)(high/low). Physical Exam: Elderly but robust alert and appropriate. No adenopathy. No pedal edema. 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 No biopsy and thus no empiric systemic immunotherapy can be pursued. Obviously beyond surgical resection of both primary lesions in a remaining solitary kidney. Need better definition of left kidney lesions which are not well delineated in exact size on PET/CT and incompletely imaged on lumbar MRI. She will undergo a MRI with kidney protocol. ( This study may be limited as her elevated creatinine will preclude use of gadolinium) Following review of MRI, we could consider stereotactic radiation to the renal lesions and solitary LC pulmonary nodule. Goal of treatment is to prevent renal lesion progression and to preserve kidney function. Discussed in detail with patient, son and daughter. PET/CT and currently available L spine MRI also reviewed in detail with them as well. Signed by: 04/25/2025 8:30:57 AM <<Signature on File>> Time spent with patient: CPT Code: CPT Code:
== END 2025-05-08 23:59 | disposition home or self-care (01) ==
PROVIDERS: PCP Family Medicine; Visit Provider Family Medicine
DX: Z53.9 Procedure and treatment not carried out, unspecified reason (principal)
CPT/HCPCS: 99205

== ENCOUNTER 2025-05-29 10:36 | Outpatient (CLI) | payer MEDICARE, SELFPAY ==
--- NOTE | 2025-05-29 11:00 | MR_ITS ---
WS: [id number] MRI/MRCP OF THE ABDOMEN WITHOUT GADOLINIUM ENHANCEMENT TECHNIQUE: Coronal T2 Fase BH, Axial T2 Fase BH, Axial T2 FS BH, Zxial 3D Driscoll BH, Axial DWI BH, 2D MRCP Radial BH, 3D MRCP (Resp), and Axial 3D Dyn BH Post sequences. CLINICAL INFORMATION: Mass in left kidney, need contrast to better define it COMPARISON: MRI 05/02/[address] 03/31/2025 FINDINGS: Images significantly degraded by respiratory artifact. Large heterogeneous mass lower pole LEFT kidney with intense associated enhancement most compatible with neoplasm. Images significantly degraded in this area today but lesion appears to intensely enhance. Lower pole lesion with central necrosis or scar measures 4.1 x 4.4 cm. LEFT midpole renal lesion measuring 1.8 cm demonstrates a fluid/fluid level suspicious for hemorrhagic or proteinaceous cystic lesion. This could be followed with ultrasound. Additional renal cysts LEFT kidney. Prior RIGHT nephrectomy. S shaped thoracolumbar scoliosis. MR/MR abdomen wo/w con* [id number] Impression: Some images are significantly degraded by respiratory artifact. 1. Heterogeneous enhancing mass lower pole LEFT kidney with central scar or ne crosis suspicious for neoplasm with intense enhancement. 2. Additional 1.8 cm lesion mid pole LEFT kidney demonstrates a fluid/fluid le jazmin suspicious for hemorrhagic or proteinaceous cyst. 3. Prior RIGHT nephrectomy.
[2025-05-29] MEDS: gadobenate dimeglumine 20 mL vial 13 ML IV (11:15)
== END 2025-05-29 10:37 | disposition home or self-care (01) ==
LOC: RAD 10:37
PROVIDERS: PCP Family Medicine; Visit Provider Radiology Radiation Oncology
DX: N28.89 Other specified disorders of kidney and ureter (principal); D41.02 Neoplasm of uncertain behavior of left kidney; N28.1 Cyst of kidney, acquired; Z90.5 Acquired absence of kidney
CPT/HCPCS: 74183

== ENCOUNTER 2025-05-31 13:32 | Oncology outpatient (recurring) (ONCR) | payer MEDICARE, SELFPAY ==
--- NOTE | 2025-05-30 14:56 | ONCRAD TMN_ITS ---
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 ID: [id number], Energy: 6X, Dose/Fx (cGy): 1,200, #Fx: 2 / 4, Dose Correction (cGy): 0, Total Dose Delivered (cGy): 2,400, Start Date: 05/23/2025, Elapsed Days: 7 Reason for visit: The patient is being seen today as part of their regularly scheduled weekly on treatment visits to assess for acute toxicities from radiotherapy. Review of Systems: No voice complaints. Specifically denies any hemoptysis. MRI completed yesterday on the kidney. Vital Signs: Performed on 05/30/2025 1:42 PM BMI - 22.486 kg/m2, Height - 64 in, Weight - 131 lbs, Temperature - 96.7 f, Pulse - 82 /min, Respiration - 18 /min, O2 Sat - 96 %, Pain - 0, Fatigue - 0 and BP - 162/ 73 mm(hg)(high/). Physical Exam: No acute findings Imaging: Radiation therapy imaging related to accurate target localization (i.e. KV, MV and CBCT) was reviewed. Appropriate changes, if any, were made to ensure treatment accuracy. Plan: Completes treatment RTC when LEFT Kidney XRT as been planned by Dr. Martinez Signed by: Ricky Ervin 05/30/2025 2:55:09 PM
== END 2025-05-31 23:59 | disposition home or self-care (01) ==
PROVIDERS: PCP Family Medicine; Visit Provider Radiology Radiation Oncology
DX: Z51.0 Encounter for antineoplastic radiation therapy (principal); C78.02 Secondary malignant neoplasm of left lung; C64.2 Malignant neoplasm of left kidney, except renal pelvis
CPT/HCPCS: 77293; 77300; 77301; 77338; 77373; 99024

== ENCOUNTER 2025-06-01 13:48 | Oncology outpatient (recurring) (ONCR) | payer MEDICARE, SELFPAY | END 2025-06-08 23:59 | disposition home or self-care (01) | PROVIDERS: PCP Family Medicine; Visit Provider Radiology Radiation Oncology | DX: Z51.0 Encounter for antineoplastic radiation therapy (principal); C64.2 Malignant neoplasm of left kidney, except renal pelvis; C78.02 Secondary malignant neoplasm of left lung | CPT/HCPCS: 77336; 77373 ==

== ENCOUNTER → 2025-06-05 12:46 | Outpatient (BNVA) | payer MEDICARE, SELFPAY | PROVIDERS: PCP Family Medicine; Referring Provider Nurse Practitioner Family; Visit Provider Anesthesiology Pain Medicine | DX: M54.9 Dorsalgia, unspecified (principal) | CPT/HCPCS: 99204 ==

== ENCOUNTER 2025-06-20 14:50 | Oncology outpatient (recurring) (ONCR) | payer MEDICARE, SELFPAY ==
--- NOTE | 2025-06-12 15:47 | ONCRAD TMN_ITS ---
Radiation Oncology Weekly Treatment Management Patient: Tiffanie Leija MR#: [id number] : 1935 Attending Physician: Dr. 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 Treatment is well planned to cover the known malignancy and exclude the viable uninvolved kidney as much as feasible. None- the-less, treatment has some risk of reducing renal function. In addition, observation with no treatment with ongoing risk of disease consuming more kidney also has risk of compromising kidney function as well. Reviewed treatment plan isodose imaging with both patient and son. Plan: Proceed with SBRT as planned. Signed by: Dr. Panda Martinez 06/12/2025 3:45:22 PM
--- NOTE | 2025-06-20 15:45 | N.ONRD TS_ITS ---
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 ID: [id number] LKidney, Energy: 6X, Dose/Fx (cGy): 1,000, #Fx: 4 / 4, Dose Correction (cGy): 0, Total Dose Delivered (cGy): 4,000, Start Date: 06/12/2025, End Date: 06/20/2025, Elapsed Days: 8 Course: LC 2024, Treatment Site: [facility] 2024, Ref. ID: [id number], Energy: 6X, Dose/Fx (cGy): 1,200, #Fx: 4 / 4, Dose Correction (cGy): 0, Total Dose Delivered (cGy): 4,800, Start Date: 05/23/2025, End Date: 06/01/2025, Elapsed Days: 9 Clinical Summary: The patient tolerated RT well both sites. Patient denies any hemoptysis or hematuria. She is to see orthopedic cast specialist tomorrow regarding her her right hip pain Plan: End of treatment today. Continue on the above medication until the skin reaction resolves. Follow up in one month or sooner if need be. Signed by: Ricky Ervin>06/20/2025 3:43:46 PM <<Signature on File>>
== END 2025-06-20 23:59 | disposition home or self-care (01) ==
PROVIDERS: PCP Family Medicine; Visit Provider Radiology Radiation Oncology
DX: Z51.0 Encounter for antineoplastic radiation therapy (principal); C64.2 Malignant neoplasm of left kidney, except renal pelvis; C78.02 Secondary malignant neoplasm of left lung; Y84.2 Radiological procedure and radiotherapy as the cause of abnormal reaction of the patient, or of later complication, without mention of misadventure at the time of the procedure
CPT/HCPCS: 77300; 77301; 77338; 77373; 99024

== ENCOUNTER → 2025-06-21 14:26 | Outpatient (BNVA) | payer MEDICARE, SELFPAY | PROVIDERS: PCP Family Medicine; Visit Provider Anesthesiology Pain Medicine | DX: M54.16 Radiculopathy, lumbar region (principal); M54.9 Dorsalgia, unspecified | CPT/HCPCS: 64483; 64484; J1100; J3490; J9999 ==

== ENCOUNTER → 2025-07-03 09:19 | Outpatient (BNVA) | payer MEDICARE, SELFPAY | PROVIDERS: PCP Family Medicine; Visit Provider Anesthesiology Pain Medicine | DX: M54.9 Dorsalgia, unspecified (principal) | CPT/HCPCS: 99213 ==

== ENCOUNTER 2025-07-26 12:42 | Oncology outpatient (recurring) (ONCR) | payer MEDICARE, SELFPAY ==
--- NOTE | 2025-07-26 13:42 | ONCRAD EPV_ITS ---
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 Radiotherapy to Date: Course: LEFT KIDNEY, Treatment Site: L Kidney SBRT, Ref. ID: [id number] LKidney, Energy: 6X, Dose/Fx (cGy): 1,000, #Fx: 4 / 4, Dose Correction (cGy): 0, Total Dose Delivered (cGy): 4,000, Start Date: 06/12/2025, End Date: 06/20/2025, Elapsed Days: 8 Course: LC 2024, Treatment Site: [facility] 2024, Ref. ID: [id number], Energy: 6X, Dose/Fx (cGy): 1,200, #Fx: 4 / 4, Dose Correction (cGy): 0, Total Dose Delivered (cGy): 4,800, Start Date: 05/23/2025, End Date: 06/01/2025, Elapsed Days: 9 Current History: This is a pleasant 89-year-old female comes back 1 month after SBRT of the left kidney and LC mass. She only complains of significant fatigue which her PCP is working up. Current Medications: amlodipine 5 mg (1/2 x 10 mg) PO DAILY blood sugar diagnostic (OneTouch Verio test strips) As directed clopidogrel 75 mg PO DAILY fluoxetine 20 mg PO DAILY fluticasone propionate 50 mcg/actuation 2 sprays intranasal DAILY insulin NPH and regular human 100 unit/mL (70-30) (Novolin 70-30 FlexPen U-100 Insulin) INJECT 20 UNITS IN THE MORNING AND 30 UNITS IN THE EVENING. levothyroxine 1 tab PO QAM magnesium oxide 400 mg PO DAILY pantoprazole 1 tab PO DAILY rosuvastatin 1 tab PO QPM tramadol 25 mg PO Q6H PRN Allergies: iodinated Contrast Media Allergy Current Complaints / Review of Systems: . Vital Signs: Performed on 07/26/2025 1:03 PM BMI - 22.967 kg/m2 (high), Height - 64 in, Weight - 133.8 lbs, Temperature - 98.5 f, Pulse - 84 /min, Respiration - 17 /min, O2 Sat - 97 %, Pain - 4, Fatigue - 0 and BP - 141/ 70 mm(hg)(high/). Physical Exam: General: Alert and oriented x 3. No acute distress. HEENT: Normocephalic, atraumatic. Extraocular Movements Intact: Pupils Equal, Round, Reactive to Light and Accommodation: Sclerae anicteric. Oral cavity is clear without lesions, masses or ulcers. NECK: Supple without supraclavicular or jugular lymphadenopathy. LUNGS: Clear to auscultation bilaterally without rales, rhonchi or wheeze. HEART: Regular rate and rhythm, normal S1 and S2 without murmur, gallop or rub. MUSCULOSKELETAL: No tenderness or percussion pain over the axial skeleton, scapulae or pelvis. ABDOMEN: Soft, nontender, nondistended without masses or organomegaly. Bowell sounds are present. EXTREMITIES: No peripheral edema is identified. Limited motor and sensory examination are grossly intact and symmetric bilaterally. NEUROLOGIC: Cranial nerves II ???XII are grossly intact. Normal sensation, strength 5/5 in all extremities, normal gait, no ataxia. Performance Status: KPS 80 Lab: None pending. Pathology: Primary, c78.02 - secondary malignant neoplasm of left lung, Diagnosed 05/16/2025 (active) and Primary, c64.2 - malignant neoplasm of left kidney, except renal pelvis, Diagnosed 05/05/2025 (active) . 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 PLAN: Continue follow-up with PCP regarding fatigue CT chest and abdomen prior to next visit RTC in 3 months or sooner if need be. Signed by: 07/26/2025 1:41:54 PM <<Signature on File>> Time spent with patient:30 MINUTES GLOBAL FEE CPT Code: CPT Code:
== END 2025-08-08 23:59 | disposition home or self-care (01) ==
PROVIDERS: PCP Family Medicine; Visit Provider Radiology Radiation Oncology
DX: C78.02 Secondary malignant neoplasm of left lung (principal); C64.2 Malignant neoplasm of left kidney, except renal pelvis; Z90.5 Acquired absence of kidney
CPT/HCPCS: 99024

== ENCOUNTER → 2025-09-04 09:20 | Outpatient (BNVA) | payer MEDICARE, SELFPAY | PROVIDERS: PCP Family Medicine; Visit Provider Anesthesiology Pain Medicine | DX: M54.9 Dorsalgia, unspecified (principal) | CPT/HCPCS: 99214 ==

== ENCOUNTER 2025-11-01 08:07 | Outpatient (CLI) | payer MEDICARE, SELFPAY ==
--- NOTE | 2025-11-01 08:00 | CT_ITS ---
WS: [id number] CT CHEST AND ABDOMEN WITHOUT CONTRAST HISTORY: renal mass TECHNIQUE: Axial imaging is performed through the chest and abdomen without contrast. Sagittal and coronal reformats. All CT scans at [facility] use at least one of these dose optimization techniques: automated exposure control; mA and/or kV adjustment per patient size (includes targeted exams where dose is matched to clinical indication); or iterative reconstruction. CONTRAST: None DLP: 338.06 mGy.cm COMPARISON: PET/CT 03/31/2025, MRI 05/02/2025 and 05/29/[address]: Development of numerous bilateral pulmonary nodules as compared to the prior PET/CT from 03/31/2025. The largest nodules at the RIGHT apex are identified. The largest measures 14 mm in short axis diameter. 11 mm nodule near the lingula with postobstructive atelectasis. Some of these nodules were present on the prior PET/CT but too small to characterize. There are new, additional and enlarging nodules highly suspicious for metastatic disease. Nu Extremely dense near contiguous calcified plaque in the aorta extending into the great vessels. No aneurysm. Extensive coronary artery calcifications. Heart size is top normal. No definite hilar or mediastinal lymph nodes are identified. Evaluation of the lymph nodes is limited by lack of IV contrast. Small hiatal hernia. No destructive bone lesions. Abdomen CT: Imaging continues into the abdomen. Very dense heavy atherosclerotic plaque within the aorta and the mesenteric arteries. Prior RIGHT nephrectomy. LEFT kidney is identified measuring 11.4 cm in length. Mild perinephric stranding. Mild dilatation of the renal pelvis secondary to a 4 mm calcification in the proximal LEFT ureter. There are additional calcifications in the renal pelvis some of these may be vascular. Reidentified is a soft tissue mass in the mid to lower kidney which cannot be evaluated further without IV contrast. Small hiatal hernia. Liver and spleen and gallbladder are unremarkable. No adrenal mass. No GI tract obstruction. Diverticula noted in the transverse colon. There are a few diverticula near the splenic flexure and proximal descending colon. There is some very mild inflammation at the site of the divert icula. Degenerative disc disease and sclerosis in the visualized lumbar spine. No destructive lesions identified. Only the abdomen was imaged at the request of the ordering physician. No adenopathy or ascites. CT/CT chest abd [id number] IMPRESSION: 1. Development of numerous, multi lobar pulmonary nodules since the PET/CT of 03/31/2025 consistent with metastatic disease. Metastatic nodules range in size from a few millimeters to the largest measuring 14 mm at the RIGHT apex. 2. Mild LEFT hydronephrosis secondary to a 4 mm calcification in the proximal LEFT ureter. 3. Prior RIGHT nephrectomy. 4. Perinephric stranding surrounding the LEFT kidney and there is also some in flammation closely associated with diverticula descending colon. The inflammato ry changes may be related perinephric stranding from the renal obstruction or m ild acute diverticulitis. 5. Severe atherosclerotic plaque within the aorta, mesenteric arteries and cor onary arteries. 6. Patient has a known LEFT renal mass suspicious for neoplasm which was hector r evaluated on the prior MRI. Difficult to evaluate without IV contrast.
== END 2025-11-01 08:08 | disposition home or self-care (01) ==
PROVIDERS: PCP Family Medicine; Visit Provider Radiology Radiation Oncology
DX: J44.9 Chronic obstructive pulmonary disease, unspecified (principal); N28.89 Other specified disorders of kidney and ureter; R91.8 Other nonspecific abnormal finding of lung field; J98.11 Atelectasis; I25.10 Atherosclerotic heart disease of native coronary artery without angina pectoris; K44.9 Diaphragmatic hernia without obstruction or gangrene; Z90.5 Acquired absence of kidney; K57.30 Diverticulosis of large intestine without perforation or abscess without bleeding; M51.369 Other intervertebral disc degeneration, lumbar region without mention of lumbar back pain or lower extremity pain
CPT/HCPCS: 71250; 74150; 82565

== ENCOUNTER 2025-11-02 11:49 | Emergency (ER) | payer MEDICARE, SELFPAY ==
[2025-11-02] VITALS (10 sets, daily range): BP systolic 184–211; BP diastolic 70–90; PULSE 92–99; RESP 18; TEMP 36.7; O2SAT 95–100
--- OUTSIDE RECORDS SUMMARY | 2025-11-02 11:56 | XMS_ITS | Encounter Summary ---
Author Organization [facility] Address [address] [facility] [address] [place] [address] Phone Care Team Providers Care Junior Accountant Name Role Phone Cara Velazquez DO Primary Care Provider [phone] Encounter Details Date Type Department Care Team (Late st Contact Info) Description 05/31/20[address] [facility] [address] [facility] [address] [place] [address] Stage 3b chronic kidney disease (HCC) Social History Tobacco Use Types Packs/Day Years Used Date Smoking Tobacco: Never Assessed Comments Unknown Sex and Gender Information Value Date Recorded Sex Assigned at Not on file Legal Sex Female 10:20 AM EDT Gender Identity Not on file Sexual Orientation Not on file documented as of this encounter Plan of Treatment Not on file documented as of this encounter Visit Diagnoses Diagnosis Stage 3b chronic kidney disease (HCC) documented in this encounter Care Teams Junior Accountant Relationship Specialty Start Date End Date Cara Velazquez DO [address] [place] [address] PCP - General Family Medicine 05/31/24 documented as of this encounter
--- OUTSIDE RECORDS SUMMARY | 2025-11-02 11:56 | XMS_ITS | Clinical Summary ---
Author Organization [facility] Address [address] [place] [address] Phone Care Team Providers Care Oracle [employer] Consultant Name Role Phone Cara Velazquze DO Primary Care Provider Allergies Active Allergy Reactions Criticality Noted Date Comments Iodinated Contrast Media Other (See Comments) 04/05/2024 Kidney's cannot handle it. Semaglutide Other (See Comments) 09/27/2024 Hearing loss, hair loss, and fatigue Medications pantoprazole (PROTONIX) 40 mg Tablet, Delayed Release (E.C.) Take 40 mg by mouth daily. Active insulin NPH-regular (HUMULIN 70-30,NOVOLIN 70-30) 100 unit/mL (70-30) injection Inject 1 Units by subcutaneous injection 2 times daily before meals. 20 unit in the morning and 30 unit at night. Active biotin (Hair, Skin and Nails, biotin,) 10,000 mcg Tablet, Chewable Take 1 Tablet by mouth. Active Blood-Glucose Meter,Continuous (FreeStyle Rhona 3 [place])Indications :Type 2 diabetes mellitus with stage 3b chronic kidney disease, with long-term current use of insulin ([facility]) Use to monitor blood sugar at least 3 times per day. 1 Each 09/27/20 24 Active Blood-Glucose Sensor (FreeStyle Rhona 3 Plus Sensor) DeviceIndications: Type 2 diabetes mellitus with stage 3b chronic kidney disease, with long-term current use of insulin ([facility]) Use to monitor blood sugar at least 3 times per day. 6 Each 4 09/27/20 24 Active fluticasone propionate (FLONASE) 50 mcg/spray [place], Suspension nasal inhalerIndications :Environmental and seasonal allergies Administer 2 Sprays in each nostril daily. 16 Gram 3 09/27/20 24 Active traMADoL (ULTRAM) 50 mg tabletIndications: Chronic right hip pain,Chronic right-sided low back pain with right-sided sciatica Take 1 Tablet (50 mg) by mouth 2 times daily as needed for Pain. 30 Tablet 1 12/20/19 25 Active clopidogreL (PLAVIX) 75 mg TabletIndications: History of stroke without residual deficits Take 1 Tablet (75 mg) by mouth daily. 90 Tablet 3 02/07/20 25 Active FLUoxetine (PROzac) 20 mg tabletIndications: Recurrent major depressive disorder, in partial remission Take 1 Tablet (20 mg) by mouth daily. 90 Tablet 3 02/07/20 25 Active MAGNESIUM CITRATE ORAL Take by mouth. Activ e cyanocobalamin 1,000 mcg Tablet Take 1,000 mcg by mouth daily. Active ergocalciferol (VITAMIN D2) 50,000 unit capsule Take 50,000 Units by mouth daily. Active HYDROcodone-acetam inophen (NORCO) 7.5-325 mg TabletIndications: Malignant neoplasm of left kidney, except renal pelvis ([facility]/HCC) Take 1 Tablet by mouth every 4 hours as needed for Pain, Moderate. Max Daily Amount: 6 Tablets 20 Tablet 03/09/20 25 Active levothyroxine 100 mcg tablet Take 1 Tablet (100 mcg) by mouth daily in the morning. 90 Tablet 4 03/13/20 25 Active acetaminophen (TYLENOL ARTHRITIS) 650 mg Extended Release tablet Take 650 mg by mouth every 8 hours as needed for Pain. As needed Active azelastine (ASTELIN) 137 mcg/actuation nasal sprayIndications:C hronic maxillary sinusitis Administer 2 Sprays in each nostril 2 times daily. 30 mL 3 06/09/20 25 Active carbonyl iron (FEOSOL) 45 mg TabletIndications: Other iron deficiency anemia Take 1 Tablet (45 mg) by mouth daily. 30 Tablet 11 06/12/20 25 Active amLODIPine (NORVASC) 10 mg tabletIndications: Primary hypertension Take 0.5 Tablets (5 mg) by mouth daily. 100 Tablet 3 08/09/20 25 Active glipiZIDE (GLUCOTROL) 5 mg tabletIndications: Type 2 diabetes mellitus with stage 3b chronic kidney disease, with long-term current use of insulin (CMS/[facility]) Take 1 Tablet (5 mg) by mouth 2 times daily. She takes 10 mg in the morning and 5 mg at evening 180 Tablet 3 08/09/20 25 Active rosuvastatin (CRESTOR) 40 mg tabletIndications: Type 2 diabetes mellitus with stage 3b chronic kidney disease, with long-term current use of insulin (CMS/HCC),Mixed hyperlipidemia Take 1 Tablet (40 mg) by mouth daily. 100 Tablet 3 08/09/20 25 Active ondansetron (ZOFRAN ODT) 4 mg Tablet, Rapid DissolveIndication s:Nausea Take 1 Tablet (4 mg) by mouth every 6 hours as needed for Nausea/Emesis. Dissolve tablet on top of tongue, then swallow with saliva. 30 Tablet 11 08/10/20 25 Active Active Problems Problem Noted Date Diagnosed Date CKD (chronic kidney disease) stage 4, GFR 15-29 ml/min 10/04/2025 Frail elderly 09/11/2025 Iron deficiency anemia secon romelia to inadequate dietary iron intake 08/10/2025 Primary insomnia 04/21/2025 Renal carcinoma, left 04/21/2025 History of stroke without residual deficits 04/2025 Environmental and seasonal allergies 09/27/2024 Chronic right hip pain 09/27/2024 Chronic right-sided low back pain with right-jen ed sciatica 09/27/2024 Ventricular tachycardia 09/27/2024 Single kidney 09/27/2024 Primary hypertension 05/24/2024 Vertebral artery occlusion 01/29/2024 Stage 3a chronic kidney disease 01/13/2024 Type 2 diabetes mellitus wit h kidney complication, with long-term current use of insulin 07/08/2023 History of renal cell carcinoma 07/08/2023 Acquired hypothyroidism 01/05/2023 Overview (05/24/2024): Hypothyroidism; 01/06/2023 11:52AM by Mai Hall LPN, Office Visit; Promoted; acuity set as *; Encounters Date Type Department Care Team Description 10/31/2025 External Device Data STL ABSTRACTION Provider, Abstract 10/04/2025 Results Follow-Up [facility] [address] [place] [address] Timothy Marquis FNP HEMOGLOBIN A1C, CBC WITH DIFFERENTIAL, IRON, TIBC, AND PERCENT SATURATION, Additional followed-up results: 2 10/03/2025 1:20 PM PROFESSOR OF GRAPHIC DESIGN Office Visit [facility] [address] [place] [address] Timothy Marquis FNP Primary hypertension (Primary Dx); Iron 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); Acquired hypothyroidism; CKD (chronic kidney disease) stage 4, GFR 15-29 ml/min ([facility]) 09/13/2025 11:10 AM PROFESSOR OF GRAPHIC DESIGN - 09/13/2025 11:59 PM PROFESSOR OF GRAPHIC DESIGN Hospital Encounter [address] [place] [address] Timothy Marquis FNP Discharge Disposition: Home or Self Care 09/11/2025 10:20 AM PROFESSOR OF GRAPHIC DESIGN Office Visit [facility] [address] [place] [address] Timothy Marquis FNP Iron 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 dietary iron intake (Primary Dx); Chronic right-sided low back pain with right-sided sciatica; Type 2 diabetes mellitus with stage 3b chronic kidney disease, with long-term current use of insulin ([facility]); Primary hypertension; Acquired hypothyroidism; Stage 3a chronic kidney disease ([facility]); Frail elderly; Renal carcinoma, left ([facility]); Need for immunization against influenza; Need for RSV immunization; Need for COVID-19 vaccine 09/06/2025 11:13 AM CDT - 09/06/2025 11:59 PM CDT Hospital Encounter [facility] [address] AT [facility] [address] [place] [address] Timothy Marquis FNP Discharge Disposition: Home or Self Care 08/30/2025 11:24 AM CDT - 08/30/2025 11:59 PM CDT Hospital Encounter [facility] [address] [facility] [address] [place] [address] Timothy Marquis FNP Discharge Disposition: Home or Self Care 08/23/2025 11:23 AM CDT - 08/23/2025 11:59 PM CDT Hospital Encounter [facility] [address] AT [facility] [address] [place] [address] Timothy Marquis FNP Discharge Disposition: Home or Self Care 08/22/2025 Telephone [facility] [address] [place] [address] Timothy Marquis FNP Paperwork 08/16/2025 11:20 AM CDT - 08/16/2025 11:59 PM CDT Hospital Encounter [facility] [address] [facility] [address] [place] [address] Timothy Marquis FNP Discharge Disposition: Home or Self Care 08/10/2025 Orders Only [facility] [address] [place] [address] Timothy Marquis FNP Iron 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 dietary iron intake (Primary Dx) 08/10/2025 Orders Only [facility] [address] [place] [address] Timothy Marquis FNP Nausea (Primary Dx) from Last 3 Months Immunizations Immunization Administration Dates Next Due INFLUENZA VACCINE HIGH DOSE TRIVALENT SPLIT VIRUS, (65 YR UP), 0.5ML (PF), IM 09/11/2025,09/27/2024 Social History Tobacco Use Types Packs/Day Years Used Date Smoking Tobacco: Never Passive Smoke Exposure: Never Smokeless Tobacco: Never Tobacco Cessation:Counseling Given: No Alcohol Use Standard Drinks/Week Comments Never 0 (1 standard drink = 0.6 oz pur e alcohol) Comments No Sex and Gender Information Value Date Recorded Sex Assigned at Female 02/25/2025 8:52 AM CDT Legal Sex Female 3:22 PM CDT Gender Identity Female 02/25/2025 8:52 AM CDT Sexual Orientation Not on file Last Filed Vital Signs Vital Sign Reading Time Taken Comments Blood Pressure 162/72 10/03/2025 12:58 PM PROFESSOR OF GRAPHIC DESIGN Pulse 72 10/03/2025 12:57 PM PROFESSOR OF GRAPHIC DESIGN Temperature 36.4 C (97.5 F) 10/03/2025 12:57 PM PROFESSOR OF GRAPHIC DESIGN Respiratory Rate 18 10/03/2025 12:57 PM PROFESSOR OF GRAPHIC DESIGN Oxygen Saturation 93% 10/03/2025 12:57 PM PROFESSOR OF GRAPHIC DESIGN Inhaled Oxygen Concentration - - Weight 61.4 kg (135 lb 6.4 oz) 10/03/2025 12:57 PM PROFESSOR OF GRAPHIC DESIGN Height 165.1 cm (5' 5 ) 10/03/2025 12:57 PM PROFESSOR OF GRAPHIC DESIGN Body Mass Index 22.53 10/03/2025 12:57 PM PROFESSOR OF GRAPHIC DESIGN Plan of Treatment Upcoming Encounters Date Type Department Care Team (Late st Contact Info) Description 12/13/2025 10:20 AM PROFESSOR OF GRAPHIC DESIGN Office Visit [facility] [address] [place] [address] Timothy Marquis, [facility] [address] [place] [address] 03/12/2026 9:20 AM CDT Office Visit [facility] [address] [place] [address] Timothy Marquis [facility] [address] [place] [address] Health Maintenance Due Date Last Done Comments DIABETES ANNUAL FOOT EXAM 1955 ZOSTER VACCINE (1 of 2) 1987 RSV VACCINE (60+ or ) (1 - 1-dose 75+ series) 2012 DIABETES ANNUAL RETINAL EXAM 06/24/2020 06/24/2019 DIABETES MICROALBUMIN ANNUAL SCREEN 07/01/2024 07/01/2023 OSTEOPOROSIS SCREENING 04/17/2025 04/17/2020 COVID-19 Vaccine (6 - 2025-2 6 season) 2025 10/22/2023, 10/20/2022, 10/11/2021, Additional history exists LDL CHOLESTEROL ANNUAL 09/27/2025 , 04/05/2024, 07/01/2023, Additional history exists DIABETES: A1C (Auto Order) 01/03/202610/03, 04/21/2025, 09/27/2024, Additional history exists Traditional Medicare (ACO) A nnual Wellness Visit 03/10/2026 03/09/2025 DIABETES HBA1C Q 6 MONTHS 04/02/20262024, 04/21/2025, 09/27/2024, Additional history exists DTAP/TDAP/TD VACCINES (2 - T d or Tdap) 07/08/2033 07/08/2023 PNEUMOCOCCAL VACCINE 50+ YEARS Completed 07/08/2023 , 08/01/2017 INFLUENZA VACCINE Completed 09/11/2025, , 10/22/2023, Additional history exists Procedures Procedure Name Priority Date/Time Associated Diagnosis Comments TSH Routine 10/03/2025 1:35 PM PROFESSOR OF GRAPHIC DESIGN Primary hypertension Acquired hypothyroidism Stage 3a chronic kidney disease (CMS/HCC) COMPREHENSIVE METABOLIC PANEL Routine 10/03/2025 1:35 PM PROFESSOR OF GRAPHIC DESIGN Iron 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 dietary iron intake Primary hypertension Acquired hypothyroidism Stage 3a chronic kidney disease (CMS/HCC) IRON, TIBC, AND PERCENT SATURATION Routine 10/03/2025 1:35 PM PROFESSOR OF GRAPHIC DESIGN Iron 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 dietary iron intake CBC WITH DIFFERENTIAL Routine 10/03/2025 1:35 PM PROFESSOR OF GRAPHIC DESIGN Iron 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 dietary iron intake Primary hypertension Acquired hypothyroidism Stage 3a chronic kidney disease (CMS/HCC) HEMOGLOBIN A1C Routine 10/03/2025 1:35 PM PROFESSOR OF GRAPHIC DESIGN Type 2 diabetes mellitus with stage 3b chronic kidney disease, with long-term current use of insulin (CMS/HCC) LIPID PANEL Routine 09/27/2024 2:04 PM PROFESSOR OF GRAPHIC DESIGN Type 2 diabetes mellitus with stage 3b chronic kidney disease, with long-term current use of insulin ([facility]) Primary hypertension Acquired hypothyroidism MICROALBUMIN/CREATINI NE RATIO, RANDOM UR Routine 07/01/2023 from Last 3 Months or Most Recently Relevant to Health Maintenance Results * (ABNORMAL) IRON, TIBC, AND PERCENT SATURATION (10/03/2025 1:35 PM PROFESSOR OF GRAPHIC DESIGN) Pathologist [facility] IRON 37(L) 45 - 160 mcg/dL [facility] TIBC 268 250 - 450 mcg/dL (calc) [facility] IRON % SATURATION 14(L) 16 - 45 % (calc) [facility] Comment: Test Performed at: [facility] [address] [place] [address] Keysha Ferrer MD Blood 10/03/2025 1:35 PM PROFESSOR OF GRAPHIC DESIGN 10/03/2025 1:37 PM PROFESSOR OF GRAPHIC DESIGN Timothy Marquis ASSOCIATE PROFESSOR OF AUTOMATION CHEMISTRY ORDERABLES Final Result [facility] [phone] [facility] [address] [place] [address] * (ABNORMAL) CBC WITH DIFFERENTIAL (10/03/2025 1:35 PM PROFESSOR OF GRAPHIC DESIGN) [facility] WBC 7.6 3.8 - 10.8 Thousand/u L [facility] RBC 4.19 3.80 - 5.10 Million/uL [facility] HEMOGLOBIN 11.4(L) 11.7 - 15.5 g/dL [facility] HEMATOCRIT 36.4 35.9 - 46.0 % [facility] MCV 86.9 81.4 - 101.7 fL [facility] MCH 27.2 27.0 - 33.0 pg [facility] MCHC 31.3(L) 31.6 - 35.4 g/dL [facility] Comment: For adults, a slight decrease in the calculated MCHC value (in the range of 30 to 32 g/dL) is most likely not clinically significant; however, it should be interpreted with caution in correlation with other red cell parameters and the patient's clinical condition. RDW 14.8 11.0 - 15.0 % [facility] PLATELETS 346 140 - 400 Thousand/u L [facility] MPV 9.8 7.5 - 12.5 fL [facility] NEUTROPHIL ABSOLUTE 5,601 1,500 - 7,800 cells/uL [facility] LYMPHOCYTE ABSOLUTE 1,307 850 - 3,900 cells/uL [facility] MONOCYTE ABSOLUTE 524 200 - 950 cells/uL [facility] EOSINOPHIL ABSOLUTE 129 15 - 500 cells/uL [facility] BASOPHILS ABSOLUTE 38 0 - 200 cells/uL [facility] NEUTROPHIL 73.7 % [facility] LYMPHOCYTES 17.2 % [facility] MONOCYTE 6.9 % [facility] EOSINOPHILS 1.7 % [facility] BASOPHILS 0.5 % [facility] Comment: FASTING:UNKNOWN FASTING: UNKNOWN Test Performed at: [facility] [address] [facility] [place] [address] Keysha Ferrer MD Blood 10/03/2025 1:35 PM PROFESSOR OF GRAPHIC DESIGN 10/03/2025 1:37 PM PROFESSOR OF GRAPHIC DESIGN Timothy Marquis ASSOCIATE PROFESSOR OF AUTOMATION HEMATOLOGY ORDERABLES Nicky l Result [facility] [phone] [facility] [address] [facility] [place] [address] * TSH (10/03/2025 1:35 PM PROFESSOR OF GRAPHIC DESIGN) TSH 1.21 0.40 - 4.50 mIU/L [facility] Comment: Test Performed at: [facility] [address] [facility] [place] [address] Keysha Ferrer MD Blood 10/03/2025 1:35 PM PROFESSOR OF GRAPHIC DESIGN 10/03/2025 1:37 PM PROFESSOR OF GRAPHIC DESIGN Timothy Marquis [facility] CHEMISTRY ORDERABLES Final Result Performing Organization Address [facility] Co de Phone Number [facility] [phone] [facility] [address] [place] [address] * (ABNORMAL) HEMOGLOBIN A1C (10/03/2025 1:35 PM PROFESSOR OF GRAPHIC DESIGN) HEMOGLOBIN A1C 9.0(H) <5.7 % [facility] Comment: For someone without known diabetes, a hemoglobin A1c value of 6.5% or greater indicates that they may have diabetes and this should be confirmed with a follow-up test. For someone with known diabetes, a value <7% indicates that their diabetes is well controlled and a value greater than or equal to 7% indicates suboptimal control. A1c targets should be individualized based on duration of diabetes, age, comorbid conditions, and other considerations. Currently, no consensus exists regarding use of hemoglobin A1c for diagnosis of diabetes for children. ESTIMATED AVERAGE GLUCOSE (MG/DL) 212 mg/dL [facility] ESTIMATED AVERAGE GLUCOSE (MMOL/L) 11.7 mmol/L [facility] Comment: FASTING:UNKNOWN FASTING: UNKNOWN Test Performed at: [facility] [address] [place] [address] Keysha Ferrer MD Blood 10/03/2025 1:35 PM PROFESSOR OF GRAPHIC DESIGN 10/03/2025 1:37 PM PROFESSOR OF GRAPHIC DESIGN Timothy Marquis [facility] CHEMISTRY ORDERABLES Final Result Performing Organization Address City/[facility]/ZIP Co de Phone Number [facility] [phone] [facility] [address] [place] [phone] * (ABNORMAL) COMPREHENSIVE METABOLIC PANEL (10/03/2025 1:35 PM PROFESSOR OF GRAPHIC DESIGN) GLUCOSE 320(H) 65 - 99 mg/dL [facility] Comment: Fasting reference interval For someone without known diabetes, a glucose value >125 mg/dL indicates that they may have diabetes and this should be confirmed with a follow-up test. BUN 47(H) 7 - 25 mg/dL [facility] CREATININE 2.26(H) 0.60 - 0.95 mg/dL [facility] GFR 20(L) > OR = 60 mL/min/1.7 3m2 [facility] BUN/CREAT RATIO 21 6 - 22 (calc) [facility] SODIUM 135 135 - 146 mmol/L [facility] POTASSIUM 4.6 3.5 - 5.3 mmol/L [facility] CHLORIDE 102 98 - 110 mmol/L [facility] CO2 24 20 - 32 mmol/L [facility] CALCIUM 7.9(L) 8.6 - 10.4 mg/dL [facility] TOTAL PROTEIN 6.1 6.1 - 8.1 g/dL [facility] ALBUMIN 3.8 3.6 - 5.1 g/dL [facility] GLOBULIN 2.3 1.9 - 3.7 g/dL (calc) [facility] ALBUMIN/GLOBULIN RATIO 1.7 1.0 - 2.5 (calc) [facility] BILIRUBIN TOTAL 0.3 0.2 - 1.2 mg/dL [facility] ALKALINE PHOSPHATASE 119 37 - 153 U/L [facility] AST 15 10 - 35 U/L [facility] ALT 12 6 - 29 U/L [facility] Comment: Test Performed at: [facility] [id number] [address] Keysha Ferrer MD Blood 10/03/2025 1:35 PM PROFESSOR OF GRAPHIC DESIGN 10/03/2025 1:37 PM PROFESSOR OF GRAPHIC DESIGN us Timothy Marquis ASSOCIATE PROFESSOR OF AUTOMATION CHEMISTRY ORDERABLES Final Result [facility] [phone] [facility] [address] [phone] * (ABNORMAL) LIPID PANEL (09/27/2024 2:04 PM PROFESSOR OF GRAPHIC DESIGN) CHOLESTEROL 123 <200 mg/dL [facility] HDL 44(L) > OR = 50 mg/dL [facility] TRIGLYCERIDE 192(H) <150 mg/dL [facility] LDL CALCULATED 53 mg/dL (calc) [facility] Comment: Reference range: <100 Desirable range <100 mg/dL for primary prevention; <70 mg/dL for patients with CHD or diabetic patients with > or = 2 CHD risk factors. LDL-C is now calculated using the Hannah calculation, which is a validated novel method providing better accuracy than the Friedewald equation in the estimation of LDL-C. Clayton OROPEZA et al. SHEREEN. 2013;310(19): 8503-9937 (http://education.Happy Cloud/faq/IWP116) CHOL/HDL RATIO 2.8 <5.0 (calc) [facility] NON-HDL CHOLESTEROL 79 <130 mg/dL (calc) [facility] Comment: For patients with diabetes plus 1 major ASCVD risk factor, treating to a non-HDL-C goal of <100 mg/dL (LDL-C of <70 mg/dL) is considered a therapeutic option. Test Performed at: [facility] [address] [place] [address] Keysha Ferrer MD Blood 09/27/2024 2:04 PM PROFESSOR OF GRAPHIC DESIGN 09/27/2024 2:05 PM PROFESSOR OF GRAPHIC DESIGN us Timothy Marquis ASSOCIATE PROFESSOR OF AUTOMATION CHEMISTRY ORDERABLES Final Result [facility] [phone] [facility] [address] [facility] [place] [address] * MICROALBUMIN/CREATININE RATIO, RANDOM UR (07/01/2023) ABSTRACTED MICROALBUMIN,URI NE 0.7 ABSTRACTED CREATININE, URINE ABSTRACTED MICROALBUMIN/CRE ATININE RATIO, URINE Urine URINE SPECIMEN OBTAINED BY CLEAN CATCH PROCEDURE / Unknown 07/01/2023 us Abstract Provider URINE ORDERABLES Final Result from Last 3 Months or Most Recently Relevant to Health Maintenance Insurance MEDICARE PART A AND B [facility] [id number] Care Teams [employer] Consultant Relationship Specialty Start Date End Date Cara Velazquez DO [address] [place] [address] PCP - General Family Practice 05/24/24
--- OUTSIDE RECORDS SUMMARY | 2025-11-02 11:56 | XMS_ITS | Data Portability ---
Author Organization [facility] Chau Barber [facility] Address [address] [facility] [address] [place] [address] Care Team Providers Care Vascular Sonographer Name Role Phone GODWINJEB Walls Primary Care Provider Assessment Encounter Date Assessment Date Assessment LastModified by Organization Details LastModified Time 07/08/2023 07/08/2023 suspect she is getting claudication she just doesn't prioritize her DM care and is not going to change her tx regimine at this time although i really do not approve at all how she is taking her insulin it is the best she will allow me todo. i understand her overwhelming caregiver stress and have offered options to try to help but there really isn't agood solution. they have gone to elder law to see what they can do. they don't have good options to help with snf placement for her either. she reports this is just how it is going to be and i respect her autonomy and will continue to tr to help. we discussed the risks and benefits of glp-1 medication at length. we discussed risks of nausea/gi effects, pancreatitis and how severe that can be, and medullary thyroid cancer. the patient has confirmed that they have weighted the risks vs the benefits and wishes to proceed with treatment. benefits include weight loss better glycemic control and reduced risk of dying of CV events. we have discussed these medication frequently. she has always declined but today she asked me about them bc her nephew started mounjaro. however, she is overwhelmed and does not want to even cons manjula a new medication at this time. perhaps she will be more open to change next time. we discussed recommended vaccines as well today. [email or web address] Not available 07/08/2023 13:10:36 01/14/2024 01/14/2024 see previous discussion below. suspect she is getting claudication she just doesn't prioritize her DM care and is not going to change her tx regimen at this time although i really do not approve at all how she is taking her insulin it is the best she will allow me to do. i understand her overwhelming caregiver stress and have offered options to try to help but there really isn't a good solution. they have gone to elder law to see what they can do. they don't have good options to help with snf placement for her either. she reports this is just how it is going to be and i respect her autonomy and will continue to try to help. we discussed the risks and benefits of glp-1 medication at length. we discussed risks of nausea/gi effects, pancreatitis and how severe that can be, and medullary thyroid cancer. the patient has confirmed that they have weighted the risks vs the benefits and wishes to proceed with treatment. benefits include weight loss better glycemic control and reduced risk of dying of CV events. we have discussed these medication frequently. she has always declined but today she asked me about them bc her nephew started mounjaro. however, she is overwhelmed and does not want to even consider a new medication at this time. perhaps she will be more open to change next time. we discussed recommended vaccines as well today. [email or web address] Not available 01/14/2024 14:53:56 Plan of Treatment Reminders Order Date Submit Date Provider Last Modified By Organization Details Last Modified Time Details Appointments None recorded. Lab None recorded. Referral None recorded. Procedures None recorded. Surgeries None recorded. Imaging CT, brain, w/o contrast [address] (Scheduling Orders), [address] [place], [address], 4 15:59:45 US, duplex, carotid artery - 62921 2023 024 [facility] [address] [place], [address], 4 16:46:03 Medication Orders clopidogrel 75 mg tablet 2023 024 [place], [address], [address], [place], [place], [id number], 14:57:54 Patient TargetsNo targets recorded. Patient InstructionsNo instructions recorded. Reason for Referral None Reported. Results Created Date Observation Date Name Description Value Unit Range Abnormal Flag Note LastModifiedBy Organization Detail LastModifiedTime 07/01/2007/01/2023 LIPID PROFI LE (FEMA LE) cholesterol 235.0 mg/dL 0.0-20 0.0 high Not Available [facility] [address] [facility] [address], [place], [address], 07/01/2023 11:34:06 07/01/2007/01/2023 LIPID PROFI LE (FEMA LE) trig 199.0 mg/dL 0.0-15 0.0 high Not Available [facility] [address] [facility] [address], [place], [address], 07/01/2023 11:34:06 07/01/2007/01/2023 LIPID PROFI LE (FEMA LE) HDL - direct 45.0 mg/dL >40.0 Not Available [facility] [address] [facility] [address], [place], [address], 07/01/2023 11:34:06 07/01/2007/01/2023 LIPID PROFI LE (FEMA LE) VLDL - direct 39.8 mg/dL Not Available [facility] [address] [facility] [address], [place], [address], 07/01/2023 11:34:06 07/01/2007/01/2023 LIPID PROFI LE (FEMA LE) LDL - direct 150.2 mg/dL 0.0-13 0.0 high Not Available [facility] [address] [facility] [address], [place], [address], 07/01/2023 11:34:06 07/01/20 23 07/01/2023 CMP (FEMA LE) glucose 279.0 mg/dL 60.0-9 9.0 high Not Available [facility] [address] [facility], [place], [address], 07/01/2023 14:08:02 07/01/2007/01/2023 CMP (FEMA LE) BUN (blood urea nitrogen) 19.0 mg/dL 10.0-2 6.0 Not Available [facility] [address] [facility], [place], [address], 07/01/2023 14:08:02 07/01/2007/01/2023 CMP (FEMA LE) creatinine (serum) 1.7 mg/dL 0.4-1. 5 high Not Available [facility] [address] [facility], [place], [address], 07/01/2023 14:08:02 07/01/2007/01/2023 CMP (FEMA LE) BUN/creatini ne ratio 11.18 ratio Not Available [facility] [address] [facility], [place], [address], 07/01/2023 14:08:02 07/01/2007/01/2023 CMP (FEMA LE) eGFR calculated 30.4 Not Available [facility] [address] [facility], [place], [address], 07/01/2023 14:08:02 07/01/2007/01/2023 CMP (FEMA LE) total protein 6.9 g/dL 6.0-8. 5 Not Available [facility] [address] [facility], [place], [address], 07/01/2023 14:08:02 07/01/2007/01/2023 CMP (FEMA LE) total bilirubin 0.4 mg/dL 0.2-1. 3 Not Available [facility] [address] [facility], [place], [address], 07/01/2023 14:08:02 07/01/20 23 07/01/2023 CMP (FEMA LE) albumin 4.5 g/dL 3.5-5. 5 Not Available [facility] [address] [facility], [place], [address], 07/01/2023 14:08:02 07/01/20 23 07/01/2023 CMP (FEMA LE) globulin 2.4 calc Not Available [facility] [address] [facility], [place], [address], 07/01/2023 14:08:02 07/01/20 23 07/01/2023 CMP (FEMA LE) AST (SGOT) 21.0 U/L 0.0-46 .0 Not Available [facility] [address] [facility], [place], [address], 07/01/2023 14:08:02 07/01/20 23 07/01/2023 CMP (FEMA LE) altv (SGPT) 13.0 U/L 13.0-6 9.0 normal Not Available [facility] [address] [place] [facility], [place], [address], 07/01/2023 14:08:02 07/01/20 23 07/01/2023 CMP (FEMA LE) A/G ratio 1.9 ratio Not Available [facility] [address] [facility], [place], [address], 07/01/2023 14:08:02 07/01/20 23 07/01/2023 CMP (FEMA LE) ALP phos 104.0 U/L 30.0-1 40.0 normal Not Available [facility] [address] [place] [address], [place], [address], 07/01/2023 14:08:02 07/01/20 23 07/01/2023 CMP (FEMA LE) calcium 8.9 mg/dL 8.4-10 .5 Not Available [facility] [address] [facility], [place], [address], 07/01/2023 14:08:02 07/01/2007/01/2023 CMP (FEMA LE) sodium 136.0 mmol/ L 136.0- 145.0 Not Available [facility] [address] [facility], [place], [address], 07/01/2023 14:08:02 07/01/2007/01/2023 CMP (FEMA LE) potassium 4.4 mmol/ L 3.5-5. 1 Not Available [facility] [address] [facility], [place], [address], 07/01/2023 14:08:02 07/01/2007/01/2023 CMP (FEMA LE) chloride 99.0 mmol/ L 98.0-1 10.0 normal Not Available [facility] [address] [facility], [place], [address], 07/01/2023 14:08:02 07/01/2007/01/2023 CMP (FEMA LE) C02 28.0 mmol/ L 22.0-3 1.0 Not Available [facility] [address] [facility], [place], [address], 07/01/2023 14:08:02 07/01/2007/01/2023 CMP (FEMA LE) anion gap 9.0 calc Not Available [facility] [address] [facility], [place], [address], 07/01/2023 14:08:02 07/01/20 23 07/01/2023 CMP (FEMA LE) osmolality 292.3 calc Not Available [facility] [address] [facility] [address], [address], 07/01/2023 14:08:02 07/01/20 23 07/02/2023 PTH, INTAC T WITHO UT CALCI UM parathyroid hormone, intact 118 pg/mL 16-77 high Inter preti ve Guide Intac t PTH Calci um ----- ----- ----- --- ----- ----- ----- -- Estela l Parat hyroi d Estela l Estela l Hypop vance yroid ism Low or Low Estela l Low Hyper parat hyroi dism Prima ry Estela l or High High Secon romelia High Estela l or Low Terti amrik High High Non-P vance yroid Hyper calce zeina Low or Low Estela l High Not Available [facility] [address] [place], [address], 07/02/2023 11:51:57 07/01/2007/01/2023 TSH, serum or plasm a TSH 4.81 uIU/m L 0.49-3 .82 Not Available [facility] ([facility]) [address] [place] [address], [address], 07/01/2023 09:02:31 07/01/20 23 07/01/2023 HbA1c (hemo globi n A1c), blood HbA1c 9.4 Not Available [facility] ([facility]) [address] [place], [address], 07/01/2023 09:02:57 07/06/20 23 07/07/2023 ALBUM IN, RANDO M URINE W/CRE ATINI NE creatinine, random urine 51 mg/dL 20-275 normal Not Available [facility] [address] [place], [address], 07/07/2023 11:55:35 07/06/20 23 07/07/2023 ALBUM IN, RANDO M URINE W/CRE ATINI NE albumin, urine 0.7 mg/dL see note: normal Refer ence Range : Refer ence Range Not estab lishe d Not Available [facility] [address] [place], [address], 07/07/2023 11:55:35 07/06/20 23 07/07/2023 ALBUM IN, RANDO M URINE W/CRE ATINI NE albumin/crea tinine ratio, random urine 14 mcg/m g_cre at <30 normal The ADA defin es abnor malit ies in album in excre tion as follo ws: Album inuri a Categ ory Resul t (mcg/ mg creat inine ) Estela l to Mildl y incre ased <30 Moder ately incre ased 30-29 9 Sever millie incre ased > OR = 300 The ADA recom mends that at least two of three speci mens colle cted withi n a 3-6 month perio d be abnor mal befor e consi manav g a patie nt to be withi n a diagn ostic categ ory. Not Available [facility] [address] , [place], [address], 07/07/2023 11:55:35 01/14/20 24 01/14/2024 CT, brain , w/o contr ast No observ ation record ed. [email or web address] [facility] [address] [place], [address], 01/28/2024 09:22:53 01/28/20 24 01/28/2024 US, zenon pandya, kalani id arter y No observ ation record ed. [email or web address] [facility] [address] [place], [address], 01/29/2024 16:23:38 Result Notes None recorded. Problems Name Problem SNOMED Code Status Onset Date Resolution Date Notes Provider Name and Address Organization Details Recorded Time History of hysterectom y 539755537 Active 2022 Hysterec amparo, complete ; non-canc erous; 01/06/20 11:52AM by Mai Page LPN, Office Visit; Promoted ; acuity set as *; Not Available [facility] 3 11:24:38 Transient ischemic attack due to embolism 557576229 Active 2022 TIA X 2; 01/06/20 11:52AM by Mai Page LPN, Office Visit; Promoted ; acuity set as *; Not Available [facility] 3 11:24:38 Benign hypertensio n 10054671 Active 2022 HTN; 01/06/20 11:52AM by Mai Page LPN, Office Visit; Promoted ; acuity set as *; Not Available [facility] 3 11:24:38 Hypercholes terolemia 99434592 Active 2022 Hypercho lesterol emia; 01/06/20 11:52AM by Mai Page LPN, Office Visit; Promoted ; acuity set as *; Not Available [facility] 3 11:24:38 Hypothyroid ism 30212409 Active 2022 Hypothyr oidism; 01/06/20 11:52AM by Mai Page LPN, Office Visit; Promoted ; acuity set as *; Not Available [facility] 3 11:24:38 Bilateral oophorectom y NEC Active 2022 oophorec zoila christensen; 01/06/20 11:52AM by Mai Page LPN, Office Visit; Promoted ; acuity set as *; Not Available [facility] 3 11:24:38 Sleep apnea 10326242 Active 2022 sleep apnea; 01/06/20 11:52AM by Mai Page LPN, Office Visit; Promoted ; acuity set as *; sleep apnea; 08/30/20 1:40PM by Ynes Pack, Office Visit; Promoted ; acuity set as *; ; Start Date : 08/30/20 Not Available [facility] 3 11:24:38 Type 2 diabetes mellitus 49067246 Active 2022 Not Available [facility] 3 11:24:38 Renal cell carcinoma 482665257 Active 2022 Not Available [facility] 3 11:24:38 Chronic kidney disease stage 3A 744550196 Active 2023 Yahaira Annelise [facility] 4 14:40:25 Depressive disorder 86049012 Active 2023 Yahaira Annelise [facility] 4 14:40:25 Diabetes mellitus 30522115 Active 2023 Yahaira Annelise [facility] 4 14:40:25 Cerebrovasc ular accident 342103772 Active 2023 Yahaira Annelise [facility] 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 4 16:20:01 Problem Notes None recorded. Procedures Surgical History Date Name Laterality Status Provider Name and Address Organization Details Recorded Time hysterectomy completed [facility] PAGE [facility] 07/08/2023 09:12:21 discectomy of spine completed [facility] 07/08/2023 09:09:31 kidney excision completed [facility] 07/08/2023 09:10:44 Imaging Results None recorded. Procedure Notes None recorded. Medical Equipment None Reported. Allergies Allergen ID Allergen Name Allergen Category Reaction Reaction Severity Criticality Documentation Date Start Date Code Code System Note Provider Name and Address Organization Details Recorded Time 28469 atorvasta tin calcium propylene glycol solvate Not available myalgias (muscle pain) Not available Not available 06/06/2023 18328 93 RxNorm React ion: myalg ias; Comme nt: Recor ded 01/06 11:52 AM by Jessica Shukla on, HIDE SHAKER, Offic e Visit ; Promo best; [place] chiu [place]: *; ; Not Available [facility] 3 02:28:09 47127 Product containin g penicilli n (product) medicatio n Not available Not available Not available 06/06/2023 32280 8001 SNOMED Comme nt: Recor ded 01/06 11:52 AM by Jessica Shukla on, HIDE SHAKER, Offic e Visit ; Promo best; [place] chiu [place]: *; Reaso n: Drug aller gy; ; Not Available [facility] 3 02:28:09 97279 acrylic acid Not available Not available Not available Not available 06/06/2023 70563 26 RxNorm Comme nt: Recor ded 01/06 11:52 AM by Jessica Shukla on, HIDE SHAKER, Offic e Visit ; Promo best; [place] chiu [place]: *; ; Not Available [facility] 3 02:28:09 Medications Name Sig Start Date Stop Date Status Note LastModified by Organization Details LastModified Time ketoconaz ole 2 % shampoo 07/08 completed Not Available Not Available Not Available glipizide ER 5 mg tablet, extended release 24 hr TAKE 2 TABLETS BY MOUTH IN THE MORNING AND 1 TABLET BY MOUTH IN THE EVENING active Not Available Not Available No t Available clopidogr el 75 mg tablet TAKE 1 TABLET BY MOUTH DAILY 2023 active Not Available Not Available Not Avai lable aspirin 81 mg tablet,de layed release Take 1 tablet every day by oral route. 02/10 completed Not Available Not Available Not Available levothyro xine 75 mcg tablet TAKE 1 TABLET BY MOUTH DAILY 2023 active Not Available Not Available Not Avai lable imiquimod 5 % topical cream packet APPLY TOPICALL Y EVERY DAY TO AFFECTED AREA THURSDAY THROUGH THURSDAY (WEEKEND S OFF) FOR SIX WEEKS 07/08 completed Not Available Not Available Not Available amlodipin e 10 mg tablet TAKE 1 TABLET BY MOUTH DAILY active Not Available Not Available No t Available pantopraz ole 40 mg tablet,de layed release TAKE 1 TABLET BY MOUTH DAILY active Not Available Not Available No t Available fluoxetin e 20 mg tablet 07/08 completed Not Available Not Available Not Available Humulin 70/30 U-100 Insulin 100 unit/mL subcutane ous suspensio n 20 units in the am; 30 units in the pm active Not Available Not Available No t Available irbesarta n 75 mg tablet TAKE 1 TABLET BY MOUTH DAILY active Not Available Not Available No t Available fluoxetin e 20 mg capsule TAKE 1/2 TABLET BY MOUTH DAILY FOR ONE WEEK, THEN 1 TABLET DAILY 07/08 completed Not Available Not Available Not Available fluticaso ne propionat e 50 mcg/actua tion nasal spray,ely pension USE 1 SPRAY IN BOTH NOSTRILS ONCE DAILY active Not Available Not Available No t Available escitalop karely 10 mg tablet 07/08 completed Not Available Not Available Not Available rosuvasta tin 40 mg tablet TAKE 1 TABLET BY MOUTH DAILY active Not Available Not Available No t Available OneTouch UltraSoft Lancets three times daily 2020 active 436; Recorded 05/28/20 21 3:31PM by Mai Page LPN (Authori zed through Jeb Godwin MD), Annotati on/Adden dum; Mail Order Quantity : 300 Unspecif ied; Mail Order Days: 90 Days; Refill Quantity : 300; Unspecif ied; Not Available Not Available Not Available fluoxetin e daily 07/08 completed Recorded 01/06/20 23 12:04PM by Jeb Godwin MD, Office Visit; Mail Order Quantity : 90 Tablet; Mail Order Days: 90 Days; Refill Quantity : 90; Tablet; Not Available Not Available Not Available Aspirin EC 07/08 completed Recorded 02/07/20 22 1:17PM by Jeb Godwin MD, Office Visit; Refill Quantity : 0; Not Available Not Available Not Available irbesarta n daily 07/08 completed Recorded 04/21/20 22 11:55AM by Jeb Godwin MD, Office Visit; Mail Order Quantity : 90 Tablet; Mail Order Days: 90 Days; Refill Quantity : 90; Tablet; Not Available Not Available Not Available [facility] Levothyro xine Sodium daily 07/08 completed 436; Recorded 01/06/20 23 1:12PM by Mai Page LPN (Authori zed through Jeb Godwin MD), Annotati on/Adden dum; Mail Order Quantity : 90 Tablet; Mail Order Days: 90 Days; Refill Quantity : 90; Tablet; Not Available Not Available Not Available Humulin 70-30 see below 01/12 completed Recorded 11/04/20 21 2:39PM by Jeb Godwin MD, Office Visit; Refill Quantity : 6; Millilit er; Not Available Not Available Not Available escitalop karely oxalate daily 07/08 completed Recorded 10/06/20 22 9:09AM by Jeb Godwin MD, Office Visit; Mail Order Quantity : 90 Tablet; Refill Quantity : 1; Tablet; Not Available Not Available Not Available Horizon Nasal Cpap System active 0; Recorded 01/06/20 23 11:52AM by Mai Page LPN, Office Visit; Not Available Not Available Not Available Glipizide XL every morning; 1 every evening 07/08 completed 436; Recorded 03/10/20 22 12:38PM by Mai Page LPN (Authori zed through Jeb Godwin MD), Refill Request; Mail Order Quantity : 270 Tablet; Mail Order Days: 90 Days; Refill Quantity : 270; Tablet; Not Available Not Available Not Available amlodipin e besylate (bulk) daily 07/08 completed 436; Recorded 08/27/20 22 8:37AM by Yahaira Mckeon RN (Authori zed through Jeb Godwin MD), Refill Request; Mail Order Quantity : 90 Tablet; Mail Order Days: 90 Days; Refill Quantity : 90; Tablet; Not Available Not Available Not Available OneTouch Verio test strips Take 1 strip 3 times a day by miscell. route for 100 days. 2022 active Not Available Not Available Not Avai lable OneTouch Verio test strips three times daily 2021 active Dx: E11.65 uses sliding scale insulin; 436; Recorded 08/14/20 22 11:46AM by Mai Page LPN (Authori shadia through Jeb Godwin MD), Refill Request; Mail Order Quantity : 150 Each; Mail Order Days: 30 Days; Refill Quantity : 300; Each; Not Available Not Available Not Available Vitals Date Recorded Body height Body mass index (BMI) Body weight Body temperature Heart rate Oxygen saturation Systolic And Diastolic Provider Name and Address Organization Details Last Updated DateTime 4 163.195 cm 25.9 kg/m2 18522.0 4 g 97.7 [degF] 77 /min 99 % 166/88 mm[Hg] [facility] 4 14:37:25 Date Recorded Body height Body mass index (BMI) Body weight Body temperature Heart rate Oxygen saturation Systolic And Diastolic Provider Name and Address Organization Details Last Updated DateTime 4 163.2 cm 25.5 kg/m2 08752.8 6 g 97.5 [degF] 87 /min 99 % 116/58 mm[Hg] [facility] 4 13:58:44 Date Recorded Body height Body mass index (BMI) Body weight Body temperature Heart rate Oxygen saturation Systolic And Diastolic Provider Name and Address Organization Details Last Updated DateTime 3 163.195 cm 26.2 kg/m2 29624.2 2 g 97.1 [degF] 83 /min 94 % 138/78 mm[Hg] MAI PAGE [facility] 3 12:42:15 Social History None recorded. Functional Status Question Answer Note LastModified by Organizat ion Details LastModified Time Do you use any illicit or recreational drugs? No [email or web address] Information not available 07/08/2023 Do you or have you ever used any other forms of tobacco or nicotine? No Information not available 07/08/2023 What is your level of alcohol consumption? None [email or web address] Information not available 07/08/2023 Mental Status None recorded. Family History Relationship Description Onset Age of this Age Resolved Age Notes LastModified by Organization Details LastModified Time Unspecified Relation Leukemia grands on [email or web address] Not available 07/08/2023 09:14:03 Unspecified Relation Multiple myeloma [email or web address] Not available 07/08 09:14:15 Brother Coronary atherosclero sis [email or web address] Not available 07/08 09:14:38 Brother Diabetes mellitus [email or web address] Not available 07/08 09:15:03 Mother Coronary atherosclero sis [email or web address] Not available 07/08 09:14:38 Mother Diabetes mellitus [email or web address] Not available 07/08 09:15:03 Sister Diabetes mellitus [email or web address] Not available 07/08 09:15:03 Father Diabetes mellitus [email or web address] Not available 07/08 09:15:03 Medical History No medical history recorded. Gynecological HistoryNo gynecological history recorded. Obstetrics History GPAL:G 0 P 0 0 0 0 Immunizations Vaccine Type Date Status Note Provider Nam e and Address Organization Details Recorded Time COVID-19, mRNA, LNP-S, PF, 100 mcg/0.5mL dose or 50 mcg/0.25mL dose 1 completed MAI melendez [facility] 07/08/2023 12:42:33 COVID-19, mRNA, LNP-S, PF, 100 mcg/0.5mL dose or 50 mcg/0.25mL dose 1 completed MAI melendez [facility] 07/08/2023 12:42:33 Influenza, split virus, trivalent, preservative 5 completed MAI melendez [facility] 07/08/2023 12:42:33 COVID-19, mRNA, LNP-S, PF, 100 mcg/0.5mL dose or 50 mcg/0.25mL dose 1 completed MAI melendez [facility] 07/08/2023 12:42:33 Pneumococcal conjugate PCV 13 7 completed MAI melendez [facility] 07/08/2023 12:42:33 Influenza, high-dose, trivalent, PF 7 completed MAI PAGE null, [facility] 07/08/2023 12:42:33 COVID-19, mRNA, LNP-S, bivalent, PF, 50 mcg/0.5 mL or 25mcg/0.25 mL dose 2 completed MAI PAGE null, [facility] 07/08/2023 12:42:33 Influenza, high-dose, trivalent, PF 9 completed MAI PAGE null, [facility] 07/08/2023 12:42:33 Influenza, high-dose, trivalent, PF 8 completed MAI melendez, [facility] 07/08/2023 12:42:33 Influenza, split virus, trivalent, preservative 4 completed MAI PAGE null, [facility] 07/08/2023 12:42:33 Influenza, split virus, trivalent, PF 0 completed MAI PAGE null, [facility] 07/08/2023 12:42:33 Influenza, split virus, trivalent, PF 5 completed MAI PAGE null, [facility] 07/08/2023 12:42:33 Influenza, split virus, quadrivalent, PF 2 completed MAI PAGE null, [facility] 07/08/2023 12:42:33 Tdap 3 completed MAI melendez, [facility] 07/08/2023 16:24:42 Pneumococcal conjugate PCV20, polysaccharide [id number] conjugate, adjuvant, PF 3 completed MAI melendez [facility] 07/08/2023 16:24:54 Past Encounters Encounter ID Performer Location Encounter Start Date Encounter Closed Date Diagnosis/Indication Diagnosis SNOMED-CT Code Diagnosis ICD10 Code Diagnosis IMO Codes Diagnosis Note [id number] Jeb Godwin MD [facility] ([facility]) [address] [place] [phone] 5 07/08/2023 12:17:49 07/08/2023 13:52:06 Benign hypertension 97436821 I10 Diabetes mellitus 326431 09 E11.65 Depressive disorder 3548 9007 F32.1 Chronic ki dney disease stage 3A 994466492 N18.31 Hypothyroidism 51891573 E03.9 Administra tion of diphtheria, pertussis, and tetanus vaccine 008990109 Z23 Administra tion of pneumococcal vaccine 34696760 Z23 [id number] Jeb Godwin MD [facility]) [address] [place] [address] [phone] 01/14/2024 14:13:23 01/14/2024 15:23:54 Type 2 diabetes mellitus 45829736 E11.65 Chronic ki dney disease stage 3A 328171695 N18.31 Benign hypertension 1072 5009 I10 Diabetes mellitus 154325 09 E11.65 Hypothyroidism 81185812 E03.9 Depressive disorder 3548 9007 F32.1 denies depressoin at this time. Cerebrovas cular accident 812293284 I63.9 sx lasted 3 hours she says and are back to normal. her sugar was neither high nor low at the time. it was around 200. her daughter pleaded to take her to the ER and she refused. we discussed the risks of not seeking emergent care immediatel y for stroke sx at length. [id number] Jeb Godwin MD [facility] ([facility]) [address] [place] [address] [phone] 01/28/2024 13:48:43 02/01/2024 11:08:17 [id number] Jeb Godwin MD [facility] ([facility]) [address] [place] [address] [phone] 5 02/11/2024 13:38:37 02/11/2024 15:47:21 Vertebral artery occlusion 914711258 I65.09 Health Concerns Section Related Observation LastModified by Organization Detai ls LastModified Time None Recorded Concern Status LastModified by Organization Details LastModified Time None Recorded Advance Directives Directive None Recorded Payers Insurance Date Sequence Insurance Name Policy Number Policy Lopez Covered Member ID Lopez Member ID Guarantor Name 02/08/2024 1 [place] Tiffanie Leija [id number] Tiffanie Leija 02/22/2024 2 AARP Tiffanie Leija [id number] Tiffanie Leija 02/17/2024 [facility] [place] - PART A - [id number] (MEDICARE) Tiffanie Leija [id number] Tiffanie Leija 02/15/2024 2 UNSPECIFIED REMIT PAYOR Tiffanie Leija Notes Date Note Type Note Provider Name and Address Organization Details Recorded Time 3 text/html DiabetesReported by PatientHPIFor control, patient reportsusually poorly controlledbut reportshemoglobin a1c has been greater than 9. For duration, patient reportschronic. For self care, patient reportsmonitoring glucose 4 times per day(morning readings 180 202 147 233 207 301 209 117 163 127 115 245 125 231. before lunch: 184 170 240 281 177 87 123 164 179 256. before dinner: 230 322 386 311 470 245 129 120 253. patient reports bs in the middle of the night usually 1 weekly 55 50 56 56 58.).Complications and Co-morbiditiesFor chronic complications, patient reportsdiabetic nephropathy: no,hypertension: yes, andhyperlipidemia: yes. For comorbidities, patient reportscardiovascular risk factors. 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 For severity, patient reportsable to maintain relationships. For duration, patient reportschronic. For onset/timing, patient reportsgradual.patient reports that she weaned herself off of her fluoxetine . And it did help with the depression, but at the same time she wasn't motivated to do anything. She was having a difficult time getting things done around the house and supper fixed. She reports that she can't be feeling that way because she is the caregiver of her and grandaughter. so, she declines and further tx for depression. HypertensionReported by PatientHPIFor duration, patient reportshas noted for years. For onset/timing, patient reportsgradual onset. For self care, patient reportslast visit 6 months. For associated symptoms, patient reportsno shortness of breathandno palpitations. For severity, (129/76 128/70 135/78 130/77 144/77 152/78 108/44. pulse 86 96 122 94 96 93).She reports that she stopped taking her irbesartan because her BP was getting too low. we have had numerous discussions aout including me if she has any mediation difficulties side effects or problems so i can help her make the best medical decisions. Jeb Godwin MD [address] [place] [address], [phone], [facility], [facility] 07/08/2023 13:11:31 4 text/html DiabetesReported by PatientHPIFor control, patient reportsusually poorly controlledbut reportshemoglobin a1c has been greater than 9. For associated symptoms, patient reportsconfusion,numbness of feet, andparesthesiasbut reportsno headaches. For duration, patient reportschronic. For self care, patient reportsmonitoring glucose 4 times per day(morning readings are usually around 120s-200s, and after dinner her readings are usually around 275-450.).Complications and Co-morbiditiesFor chronic complications, patient reportsdiabetic nephropathy: no,hypertension: yes, andhyperlipidemia: yes. For comorbidities, patient reportscardiovascular risk factors. 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 For severity, patient reportsable to maintain relationships. For duration, patient reportschronic. For onset/timing, patient reportsgradual. HypertensionReported by PatientHPIFor associated symptoms, patient reportspalpitations (once in a while; high heart rate at times)but reportsno shortness of breath. For duration, patient reportshas noted for years. For onset/timing, patient reportsgradual onset. For self care, patient reportslast visit 6 months. For severity, (120s-180s/60s-90s).Over the past few months (but mainly this last week) she has been having trouble remembering things and has been suddenly struggling with expressive aphasia at time. She is very fatigued. She believes that she had a stroke and this is why it is now hard for her to recall words. Pt reports no new onset motor issues or other neurological issues.ROS as noted in the HPI Jeb Godwin MD [address] [place] [address], [phone], [facility] 01/14/2024 14:57:57 4 text/html Generic [facility] TemplateReported by PatientHPIFor context, (pt was diagnosed with a cva at her last appointment. notes from that ov: over the past few months (but mainly this last week) she has been having trouble remembering things and has been suddenly struggling with expressive aphasia at time. she is very fatigued. she believes that she had a stroke and this is why it is now hard for her to recall words. pt reports no new onset motor issues or other neurological issues. since then she has started plavix, and had a ct of her brain and ultrasound of her carotid artery. she is here today to follow up on this. she states her memory is still poor, but she doesn't feel it has decreased.).Pt states she has had an increase in her nausea and her back pain since her last appointment. speech has improved word finding is back to normal.she has no difficulty swallowing and no other focal neural deficitsat this time.bp is doing very well. reinforced she should stop her aspirin at this time.her sugar is doing much better, she says. cta on the . will f/u with Ciara in a few weeks.ROS as noted in the HPI Jeb Godwin MD [address] [place], [phone], [facility] 02/11/2024 15:12:12 OBGyn Episode No OBEpisode recorded.
--- OUTSIDE RECORDS SUMMARY | 2025-11-02 11:56 | XMS_ITS | Clinical Summary ---
Author Organization [facility] [employer], [facility] Address [address] [place] [address] Phone Care Team Providers Care Pole Shaver Helper Name Role Phone Marcus, Cara Primary Care Provider [phone] Allergies Active Allergy Reactions Criticality Noted Date Comments Atorvastatin Other (see comments) 10/31/2024 Carbomer Other (see comments) 10/31/2024 Iodinated Contrast Media 04/05/2024 Other Reaction(s): Other (See Comments) Kidney's cannot handle it. Penicillins Other (see comments) 10/31/2024 Semaglutide Other (see comments) 09/27/2024 Hearing loss, hair loss, and fatigue Medications rosuvastatin (CRESTOR) 40 MG tablet Take 40 mg by mouth in the morning. Active predniSONE (DELTASONE) 10 MG tablet Take 3 tablet once per day for 3 days, then 2 tabs once per day for 3 days, then 1 tab once per day for 3 days 4 Active pantoprazole (PROTONIX) 40 MG EC tablet Take 40 mg by mouth in the morning. Active levothyroxine (SYNTHROID, LEVOTHROID) 75 MCG tablet Take 75 mcg by mouth in the morning. Active irbesartan (AVAPRO) 75 MG tablet Take 1 tablet by mouth 1 (one) time each day 4 Active insulin NPH-insulin regular (HumuLIN 70/30 KWIKPEN) (70-30) 100 UNIT/ML injection Inject 1 Units under the skin Active insulin NPH-insulin regular (HumuLIN 70/30) (70-30) 100 UNIT/ML injection 20 units in the am; 30 units in the pm Active glipiZIDE (GLUCOTROL XL) 5 MG 24 hr tablet Take 10 mg by mouth 1 (one) time each day 4 Active fluticasone (FLONASE) 50 MCG/ACT nasal spray Administer 2 sprays into affected nostril(s) in the morning. 4 Active FLUoxetine HCl, PMDD, 20 MG tablet Take 20 mg by mouth in the morning. 4 Active clopidogrel (PLAVIX) 75 MG tablet Take 75 mg by mouth in the morning. 4 Active benzonatate (TESSALON) 100 MG capsule Take 100 mg by mouth 4 Active amLODIPine (NORVASC) 10 MG tablet Take 1 tablet by mouth 1 (one) time each day 4 Active Biotin 41360 MCG tablet dispersible Take 1 tablet by mouth Active acyclovir (ZOVIRAX) 800 MG tablet Take 800 mg by mouth in the morning and 800 mg at noon and 800 mg in the evening. 5 Active aspirin (ST ARMIN) 81 MG EC tablet Take 81 mg by mouth 1 (one) time each day Active cyanocobalamin (VITAMIN B-12) 1000 MCG tablet Take 100 mcg by mouth 1 (one) time each day Active Magnesium 400 MG tablet Take 1 tablet by mouth 1 (one) time each day Active Active Problems No known active problems Family History Medical History Relation Comments Hypertension Father Diabetes Mother Heart disease Mother Hypertension Mother Cancer Neg Hx Kidney disease Neg Hx Relation Status Comments Father Mother Social History Tobacco Use Types Packs/Day Years Used Date Smoking Tobacco: Never Smokeless Tobacco: Never Tobacco Cessation:Counseling Given: Not Answered Alcohol Use Standard Drinks/Week Comments Not Currently 0 (1 standard drink = 0.6 oz pur e alcohol) Comments Unknown Sex and Gender Information Value Date Recorded Sex Assigned at Not on file Legal Sex Female 10:20 AM EDT Gender Identity Not on file Sexual Orientation Not on file Last Filed Vital Signs Vital Sign Reading Time Taken Comments Blood Pressure 166/72 11/22/2024 1:16 PM ENTRY LEVEL ELECTRICAL ENGINEER Pulse 89 11/22/2024 1:16 PM ENTRY LEVEL ELECTRICAL ENGINEER Temperature - - Respiratory Rate - - Oxygen Saturation 97% 11/22/2024 1:16 PM ENTRY LEVEL ELECTRICAL ENGINEER Inhaled Oxygen Concentration - - Weight 63.5 kg (140 lb) 11/22/2024 1:16 PM ENTRY LEVEL ELECTRICAL ENGINEER Height - - Body Mass Index - - Plan of Treatment Health Maintenance Due Date Last Done Comments Pneumococcal Vaccine: 50+ Years (2 of 2 - PPSV23, PCV20, or PCV21) 09/26/2017 08/01/2017 Diabetes: Hemoglobin A1C 06/28/2024 Diabetes: Ophthalmology Exam 06/28/2024 Diabetes: Pedal Pulse Checked 06/28/2024 Diabetes: Sensory Foot Exam 06/28/2024 Diabetes: Visual Foot Exam 06/28/2024 Influenza Vaccine (#1) 2025 4, 10/20/2022, 07/25/2020, Additional history exists Hepatitis B Vaccine Aged Out No longe r eligible based on patient's age to complete this topic Insurance Medicare [facility] Care Teams Pole Shaver Helper Relationship Specialty Start Date End Date Cara Velazquez DO [address] [place] [phone] PCP - General Family Medicine 05/31/24
--- OUTSIDE RECORDS SUMMARY | 2025-11-02 11:56 | XMS_ITS ---
Author Organization [facility] Matthew riggs Metcalfe Address [address] [place] [address] Phone Care Team Providers Care Credit Report Checker Name Role Phone Cara Velazquez DO Primary Care Provider Active Problems Problem Noted Date Diagnosed Date [...] Office Visit; Promoted; acuity set as *; Current Treatment and Therapy Plans No current plan information found. Other Current Plans IRON SUCROSE (VENOFER) IV 200 MG WEEKLY X 5 DOSES* Plan Start Date:08/16/2025 Plan Provider:Timothy Marquis FNP Linked Problems Iron deficiency anemia luh león to inadequate dietary iron intake Treatment Medications No medications scheduled. Past Treatment and Therapy Plans No past plan information found. Lifetime Dose Tracking * Chemical Lifetime Dose Automatic Entry Manual Entr y Effective Dose 11.7 mSv 11.7 mSv 0 mSv Total DLP 777.6 DLP 777.6 DLP 0 DLP CTDIvol Max 23.1 mGy 23.1 mGy 0 mGy CTDIvol Min 10.6 mGy 10.6 mGy 0 mGy
--- OUTSIDE RECORDS SUMMARY | 2025-11-02 11:56 | XMS_ITS | Encounter Summary ---
Author Organization [facility] Address [address] [place] [address] Care Team Providers Care Motor Racer Name Role Phone Cara Velazquez DO Primary Care Provider [phone] Encounter Details Date Type Department Care Team (Late st Contact Info) Description 10/31/2025 External Device Data ST[place] ABSTRACTION Provider, Abstract NO ADDRESS ON FILE Social History Tobacco Use Types Packs/Day Years Used Date Smoking Tobacco: Never Passive Smoke Exposure: Never Smokeless Tobacco: Never Alcohol Use Standard Drinks/Week Comments Never 0 (1 standard drink = 0.6 oz pur e alcohol) Comments No Sex and Gender Information Value Date Recorded Sex Assigned at Female 02/25/2025 8:52 AM CDT Legal Sex Female 3:22 PM CDT Gender Identity Female 02/25/2025 8:52 AM CDT Sexual Orientation Not on file documented as of this encounter Plan of Treatment Upcoming Encounters Date Type Department Care Team (Late st Contact Info) Description 12/13/2025 10:20 AM DOG LICENSE OFFICER SUPERVISOR Office Visit [facility] [address] [place] [address] Timothy Marquis, RAMÍREZ [address] [place] [phone] 03/12/2026 9:20 AM CDT Office Visit [facility] [address] [place] [phone] [facility] [address] [place] [address] documented as of this encounter Visit Diagnoses Not on filedocumented in this encounter Additional Health Concerns Assessment Noted Time PHQ-9 Depression Total Score: 1 03/09/20 25 5:02 PM CDT documented as of this encounter Care Teams Motor Racer Relationship Specialty Start Date End Date Cara Velazquez DO [address] [place] [address] PCP - General Family Practice 05/24/24 documented as of this encounter
--- OUTSIDE RECORDS SUMMARY | 2025-11-02 11:56 | XMS_ITS | Encounter Summary ---
Author Organization [facility] Address [address] [place] [address] Care Team Providers Care Sequins Spooler Name Role Phone Cara Velazquez DO Primary Care Provider [phone] Encounter Details Date Type Department Care Team (Late st Contact Info) Description 10/04/2025 Results Follow-Up [facility] [address] [place] [address] Timothy Marquis, [facility] [address] [place] [address] HEMOGLOBIN A1C, CBC WITH DIFFERENTIAL, IRON, TIBC, AND PERCENT SATURATION, Additional followed-up results: 2 Social History Tobacco Use Types Packs/Day Years [...] st Contact Info) Description 12/13/2025 10:20 AM DIAGNOSTICS TECH Office Visit [facility] [address] [place] [address] Timothy Marquis, [facility] [address] [place] [address] 03/12/2026 9:20 AM CDT Office Visit [facility] [address] [place] [address] Timothy Marquis, [facility] [address] [place] [address] Scheduled Orders Name Type Priority Associated Diagnoses Orde r Schedule BASIC METABOLIC PANEL Lab Routine CKD (chronic kidney disease) stage 4, GFR 15-29 ml/min (CMS/HCC) Expected: 11/03/2025 (Approximate), Expires: 10/04/2026 documented as of this encounter Visit Diagnoses Diagnosis CKD (chronic kidney disease) stage 4, GFR 15-29 ml/min (CMS/HCC)- Primary Chronic kidney disease, Stage IV (severe) documented in this encounter Additional Health Concerns Assessment Noted Time PHQ-9 Depression Total Score: 1 03/09/20 25 5:02 PM CDT documented as of this encounter Care Teams Sequins Spooler Relationship Specialty Start Date End Date Cara Velazquez DO [address] [place] [address] PCP - General Family Practice 05/24/24 documented as of this encounter
--- NOTE | 2025-11-02 12:00 | W.ED.WEAKNES ---
HPI - Weakness General: Chief complaint: Weakness Stated complaint: rt arm and leg weakness (since yesterday) Time Seen by Provider: 11/02/25 11:59 History of Present Illness: 89-year-old female with a history of hypertension, hypothyroidism, arrhythmia and type 2 diabetes who presents to the emergency room with right sided weakness. Stuff that started over 24 hours ago. She has right hand weakness and right arm weakness. She is able to stand. No facial droop. No fevers. No chest pain. No abdominal pain. No altered mental status. Further discussion with daughter. Patient has had a right nephrectomy. She has renal cancer with known mets. She had gone to have lab work and CT done yesterday at that time symptoms had started. Patient has also been complaining of severe Related Data Home Medications ?Medication ?Instructions ?Recorded ?Confirmed blood sugar diagnostic (OneTouch #10 ea 06/03/22 11/02/25 Verio test strips) rosuvastatin 40 mg tablet 1 tab PO QPM 06/03/22 11/02/25 fluoxetine 20 mg capsule 20 mg PO DAILY 10/09/22 11/02/25 clopidogrel 75 mg tablet 75 mg PO DAILY 05/18/24 11/02/25 insulin NPH-regular 70-30 U-100 See Rx Instructions .Route .COMPLEX 05/18/24 11/02/25 insulin 100 unit/mL subcutaneous pen (Novolin 70-30 FlexPen U-100 Insulin) glipizide 5 mg tablet, extended 5 mg PO BID 11/02/25 11/02/25 release 24 hr hydrocodone 7.5 mg-acetaminophen 1 tab PO Q6H PRN Pain 11/02/25 11/02/25 325 mg tablet irbesartan 75 mg tablet 75 mg PO DAILY 11/02/25 11/02/25 levothyroxine 100 mcg tablet 100 mcg PO QAM 11/02/25 11/02/25 ondansetron 4 mg disintegrating 4 mg PO Q6H PRN Nausea And Vomiting 11/02/25 11/02/25 tablet tramadol 50 mg tablet 50 mg PO BID PRN Pain 11/02/25 11/02/25 Previous Rx's ?Medication ?Instructions ?Recorded amlodipine 10 mg tablet 5 mg (1/2 x 10 mg) PO DAILY #90 07/29/24 tabs magnesium oxide 400 mg PO DAILY #90 tabs 07/29/24 Allergies Allergy/AdvReac Type Severity Reaction Status Date / Time Iodinated Contrast Media AdvReac pt had Verified 11/02/25 11:58 kidney removed Review of Systems Narrative: Constitutional symptoms: Negative except as documented in HPI. Skin symptoms: Negative except as documented in HPI. Eye symptoms: Negative except as documented in HPI. ENMT symptoms: Negative except as documented in HPI. Respiratory symptoms: Negative except as documented in HPI. Cardiovascular symptoms: Negative except as documented in HPI. Gastrointestinal symptoms: Negative except as documented in HPI. Genitourinary symptoms: Negative except as documented in HPI. Musculoskeletal symptoms: Negative except as documented in HPI. Neurologic symptoms: Negative except as documented in HPI. Psychiatric symptoms: Negative except as documented in HPI. Endocrine symptoms: Negative except as documented in HPI. PFSH ED PFSH: Medical History (Updated 11/02/25 @ 15:03 by Ev Joaquin MD) History of kidney cancer Type 2 diabetes mellitus with diabetic polyneuropathy Surgical History (Updated 11/02/25 @ 15:04 by Ev Joaquin MD) History of back surgery Social History Smoking and tobacco/nicotine status: never used tobacco/nicotine Physical Exam Narrative: EXAM NARRATIVE: General: Alert, no acute distress. Skin: Warm, dry. Head: Normocephalic, atraumatic. Neck: Supple, trachea midline. Eye: Extraocular movements are intact. Ears, nose, mouth and throat: mucosa moist. Cardiovascular: Regular, Normal peripheral perfusion. Respiratory: Lungs are clear to auscultation, respirations are non-labored, breath sounds are equal, Symmetrical chest wall expansion. Gastrointestinal: Soft, Nontender, Non distended Musculoskeletal: Normal ROM, no deformity. 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 Mild weakness in the right leg. She can raise this briefly off the bed but then loses strength and sits it back down after for 5 seconds. No facial droop. No slurred speech. No altered mental status. Psychiatric: Cooperative, appropriate mood & affect. Course Vital Signs: Vital signs: Vital Signs Temperature 98.1 F 11/02/25 11:53 Pulse Rate 97 11/02/25 14:49 Respiratory Rate 18 11/02/25 11:53 Blood Pressure 184/86 11/02/25 14:49 Pulse Oximetry 99 11/02/25 14:49 Oxygen Delivery Me thod Room Air 11/02/25 14:49 MDM - Weakness Medical Decision Making Medical decision making Patient's reason for coming to the emergency room: Stroke symptoms Social determinants: Retired. Daughter is present. I reviewed the patient's medical record. 89-year-old female with a history of hypertension, hypothyroidism, arrhythmia and type 2 diabetes. Further discussion with daughter. Patient has had a right nephrectomy. She has renal cancer with known mets. She had gone to have lab work and CT done yesterday at that time symptoms had started. Family does not know and patient records do not say what type of renal cancer she has. I reviewed the patient's current home meds Patient is anticoagulated on clopidogrel Alternate historians: None Differential diagnosis for patient with focal neurologic deficit(s) includes but not limited to and based on the above HPI, review of systems and physical exam: ischemic stroke, hemorrhagic stroke and embolic stroke secondary to atrial fibrillation), TIA, Holt's palsy, metabolic encephalopathy with previous stroke. Orders placed to evaluate differential diagnosis based on the above differential, HPI and physical exam On further review of the patient's record it appears she has an obstructing stone and renal failure. Stroke workup has been negative. Lab Review: Laboratory results were reviewed and interpreted by myself the emergency room physician. No leukocytosis. No anemia. Acute renal insufficiency. Her creatinine had been running about 1.7 and is 2.7 today. Urinalysis is negative for infection. Flu COVID and RSV are negative. EKG: Time 1213. Rate 93. Normal sinus rhythm, nonspecific ST changes, no ectopy, normal TX & QRS intervals, This was reviewed and interpreted by myself the ER physician at 12:17 CT head: No acute intracranial process. No intracranial hemorrhage, no evidence of infarct. No evidence of acute fracture. This was reviewed and interpreted by myself the emergency room physician. I also reviewed the radiology report. Chest x-ray: Subsegmental atelectasis. Small lung nodules. This was reviewed and interpreted by myself the emergency room physician. I also reviewed the radiology report. CT of the chest abdomen pelvis: This was done yesterday. I have reviewed this. Patient has left hydronephrosis secondary to 4 mm calcification in the proximal left ureter. She has a right nephrectomy. Worsening metastatic disease. This was reviewed and interpreted by myself the emergency room physician. I also reviewed the radiology report. Assessment of risk: Level of risk: High risk patient. Elderly with multiple comorbidities. Hospitalization considerations: Patient is being transferred to in [place]. Transferred for urology intervention for probable stent placement for renal failure with a single kidney and an obstructing stone. Family request that they do not go to [place]. Reexamination: Patient remained stable. No increased work of breathing. No altered mental status. No focal motor deficits. Consultation: I spoke with Dr. Stewart who is urologist at in [place] who is accepted the patient in transfer. Assessment and plan: Acute on chronic renal failure. Unilateral kidney Hypertension Right-sided weakness Metastatic renal cancer Flank pain ?Normal saline bolus and fluids. IV hydralazine. Keep NPO. IV hydralazine -I discussed the patient with the accepting physician on-call. - Discussed findings and plan with patient. Answered any questions. - All laboratory values were reviewed and interpreted personally by myself, the ER physician - All imaging was reviewed and interpreted personally by myself, the ER physician. - Evaluation and treatment of this problem were appropriate in the emergency setting Lab Data 11/02/25 12:30 11/02/25 12:[address] 11/02/25 12:03 IMPRESSION: Stable chronic findings with no evidence of acute intracranial hemorrhage, mass or acute infarction. ASSESSMENT: ASPECTS (Beth Stroke Program Early CT Score) is 10. ADDENDUM: 11/02/25 1234 FallTHIS REPORT CONTAINS FINDINGS THAT MAY BE CRITICAL TO PATIENT CARE. The findings were verbally communicated via telephone conference with EV JOAQUIN at 12:32 PM TOE SEWER on 11/02/2025. The findings were acknowledged and understood. Chest X-Ray 11/02/25 12:04 IMPRESSION: No acute findings. Subsegmental atelectasis in the left mid/lower lung. Small lung nodules documented on CT chest on 11/01/2025 are not clearly visualized on this film. Laboratory Results WBC 9.17 10^3/uL (3.29-11.43) 11/02/25 12:30 RBC 4.38 10^6/uL (3.85-5.65) 11/02/25 12:30 Hgb 11.60 g/dL (11.27-16.99) 11/02/25 12: Hct 36.2 % (36-47) 11/02/25 12: MCV 82.6 fl (85-98) L 11/02/25 12: MCH 26.5 pg (27-33) L 11/02/25 12: MCHC 32.0 g/dL (30-55) 11/02/25 12: RDW 14.1 % (12.1-15.1) 11/02/25 12: Plt Count 369 10^3/cmm (157-399) 11/02/25 12: MPV 9.1 fL (7.4-10.4) 11/02/25 12: Neut % (Auto) 73.3 % 11/02/25 12:30 Lymph % (Auto) 17.4 % 11/02/25 12: [place] % (Auto) 6.3 % 11/02/25 12: Eos % (Auto) 2.0 % 11/02/25 12: Baso % (Auto) 0.7 % 11/02/25 12: Neut # (Auto) 6.72 10^3/uL (1.8-7.7) 11/02/25 12: Lymph # (Auto) 1.6 10^3/uL (0.8-4.8) 11/02/25 12:30 [place] # (Auto) 0.6 10^3/uL (0.2-0.9) 11/02/25 12: Eos # (Auto) 0.2 10^3/uL (0.0-0.8) 11/02/25 12:30 Baso # (Auto) 0.1 10^3/uL (0.0-0.1) 11/02/25 12: Nucleated RBC % (auto) 0 % 11/02/25 12: Nucleated RBCs # 0.0 /100WBC 11/02/25 12: PT 12.80 SECONDS (12.1-14.9) 11/02/25 12: INR 0.90 (0.8-1.2) 11/02/25 12: APTT 25.8 SECONDS (23.9-36.7) 11/02/25 12:30 Sodium 133 mmol/L (136-145) L 11/02/25 12:30 Potassium 3.9 mmol/L (3.5-5.1) 11/02/25 12:30 Chloride 97 mmol/L (98-107) L 11/02/25 12: Carbon Dioxide 23 mmol/L (22-29) 11/02/25 12: Anion Gap 16.9 (5-19) 11/02/25 12:30 BUN 41 mg/dL (8-23) H 11/02/25 12:30 Creatinine 2.7 mg/dL (0.5-0.9) H 11/02/25 12:30 GFR Calculation Not Reportable 11/02/25 12:30 Glucose 251 mg/dL (65-115) H 11/02/25 12: POC Glucose 227 mg/dL (70-110) H 11/02/25 12:09 Calculated Osmolality 295 mOsm/kg (285-295) 11/02/25 12: Lactic Acid 1.1 mmol/L (0.5-2.2) 11/02/25 12:30 Calcium 10.2 mg/dL (8.5-10.5) 11/02/25 12: Total Bilirubin 0.2 mg/dL (0.15-1.2) 11/02/25 12: AST 9 U/L (0-32) 11/02/25 12: ALT 6 U/L (0-33) 11/02/25 12:30 Alkaline Phosphatase 130 U/L (35-105) H 11/02/25 12: C-Reactive Protein 34.7 mg/L (0.0-4.9) H 11/02/25 12: Total Protein 6.9 g/dL (6.6-8.7) 11/02/25 12: Albumin 3.8 g/dL (3.5-5.2) 11/02/25 12: Globulin 3.1 g/dL (1.3-4.6) 11/02/25 12:30 Urine Color Yellow (Yellow) 11/02/25 12:42 Urine Appearance Clear (CLEAR) 11/02/25 12:42 Urine pH 5.0 (5-7) 11/02/25 12:42 Ur Specific [place] 1.012 (1.005-1.030) 11/02/25 12:42 Urine Protein 1+ (Negative) A 11/02/25 12:42 Urine Glucose (UA) Trace (Normal) H 11/02/25 12:42 Urine Ketones Trace (Negative) 11/02/25 12:42 Urine Blood Negative (Negative) 11/02/25 12:42 Urine Nitrate Negative (Negative) 11/02/25 12:42 Urine Bilirubin Negative (Negative) 11/02/25 12:42 Urine Urobilinogen 0.2 mg/dL (Negative) 11/02/25 12:42 Ur Leukocyte Esterase Trace (Negative) A 11/02/25 12:42 Urine RBC 0-2 /hpf (0-2) 11/02/25 12:42 Urine WBC 0-5 /hpf (0-5) 11/02/25 12:42 Ur Squamous Epith Cells 0-5 /hpf (0-5) 11/02/25 12:42 Amorphous Sediment Not Reportable 11/02/25 12:42 Urine Bacteria None seen /hpf (NONE) 11/02/25 12:42 Hyaline Casts 2.05 /lpf 11/02/25 12:42 Urine Opiates Screen Negative ng/mL (Negative) 11/02/25 12:42 Ur Barbiturates Screen Negative ng/mL (Negative) 11/02/25 12:42 Ur Phencyclidine Scrn Negative ng/mL (Negative) 11/02/25 12:42 Ur Amphetamines Screen Negative ng/mL (Negative) 11/02/25 12:42 U Benzodiazepines Scrn Negative ng/mL (Negative) 11/02/25 12:42 Urine Cocaine Screen Negative ng/mL (Negative) 11/02/25 12:42 U Marijuana (THC) Screen Negative ng/mL (Negative) 11/02/25 12:42 All radiology interpretation(s) finalized by discharge ED provider radiology interpretation(s): [address] [address] [address] Scan Report Signed Patient: Tiffanie Leija Unit #: [id number] : 1935 Age/Sex: 89 / F ADM Date: 11/01/25 Loc: RAD Room/Bed: Attending: Ricky Ervin DO Ordering Provider/Ordering MD: Ricky Ervin DO Date of Service: 11/01/25 Procedure(s): CT chest abd wo [id number] Accession Number(s): [id number] Report Number: [id number] WS: [id number] CT CHEST AND ABDOMEN WITHOUT CONTRAST HISTORY: renal mass TECHNIQUE: Axial imaging is performed through the chest and abdomen without contrast. Sagittal and coronal reformats. All CT scans at [facility] use at least one of these dose optimization techniques: automated exposure control; mA and/or kV adjustment per patient size (includes targeted exams where dose is matched to clinical indication); or iterative reconstruction. CONTRAST: None DLP: 338.06 mGy.cm COMPARISON: PET/CT 03/31/2025, MRI 05/02/2025 and 05/29/[address]: Development of numerous bilateral pulmonary nodules as compared to the prior PET/CT from 03/31/2025. The largest nodules at the RIGHT apex are identified. The largest measures 14 mm in short axis diameter. 11 mm nodule near the lingula with postobstructive atelectasis. Some of these nodules were present on the prior PET/CT but too small to characterize. There are new, additional and enlarging nodules highly suspicious for metastatic disease. Nu Extremely dense near contiguous calcified plaque in the aorta extending into the great vessels. No aneurysm. Extensive coronary artery calcifications. Heart size is top normal. No definite hilar or mediastinal lymph nodes are identified. Evaluation of the lymph nodes is limited by lack of IV contrast. Small hiatal hernia. No destructive bone lesions. Abdomen CT: Imaging continues into the abdomen. Very dense heavy atherosclerotic plaque within the aorta and the mesenteric arteries. Prior RIGHT nephrectomy. LEFT kidney is identified measuring 11.4 cm in length. Mild perinephric stranding. Mild dilatation of the renal pelvis secondary to a 4 mm calcification in the proximal LEFT ureter. There are additional calcifications in the renal pelvis some of these may be vascular. Reidentified is a soft tissue mass in the mid to lower kidney which cannot be evaluated further without IV contrast. Small hiatal hernia. Liver and spleen and gallbladder are unremarkable. No adrenal mass. No GI tract obstruction. Diverticula noted in the transverse colon. There are a few diverticula near the splenic flexure and proximal descending colon. There is some very mild inflammation at the site of the diverticula. Degenerative disc disease and sclerosis in the visualized lumbar spine. No destructive lesions identified. Only the abdomen was imaged at the request of the ordering physician. No adenopathy or ascites. CT/CT chest abd wo [id number] IMPRESSION: 1. Development of numerous, multi lobar pulmonary nodules since the PET/CT of 03/31/2025 consistent with metastatic disease. Metastatic nodules range in size from a few millimeters to the largest measuring 14 mm at the RIGHT apex. 2. Mild LEFT hydronephrosis secondary to a 4 mm calcification in the proximal LEFT ureter. 3. Prior RIGHT nephrectomy. 4. Perinephric stranding surrounding the LEFT kidney and there is also some inflammation closely associated with diverticula descending colon. The inflammatory changes may be related perinephric stranding from the renal obstruction or mild acute diverticulitis. 5. Severe atherosclerotic plaque within the aorta, mesenteric arteries and coronary arteries. 6. Patient has a known LEFT renal mass suspicious for neoplasm which was better evaluated on the prior MRI. Difficult to evaluate without IV contrast. Discharge Plan Discharge Patient Disposition: Xfer Short-Term Hosp Clinical Impression: Acute on chronic renal failure, Urinary tract obstruction by kidney stone, Ureterolithiasis, Right sided weakness, Hypertension, H/O left nephrectomy Condition: Stable Referrals: Cara Velazquez DO [Primary Care Provider, Family Practice] Print Language: Comoran Coding Level of Care Code ED Crop Supervisor for Abby Kulkarni
--- NOTE | 2025-11-02 12:03 | ECG_ITS ---
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
--- NOTE | 2025-11-02 12:03 | CTR_ITS ---
PROCEDURE INFORMATION: Exam: CT Head Without Contrast Exam date and time: 11/02/2025 12:15 PM Age: 89 years old Clinical indication: Stroke-like symptoms; Altered mental status/memory loss; Additional info: Symptoms of acute stroke TECHNIQUE: Imaging protocol: Computed tomography of the head without contrast. Radiation optimization: All CT scans at this facility use at least one of these dose optimization techniques: automated exposure control; mA and/or kV adjustment per patient size (includes targeted exams where dose is matched to clinical indication); or iterative reconstruction. Other technique: STROKE PROTOCOL was implemented. COMPARISON: CT head wo con* [id number] 05/18/2024 12:59 PM RADIATION DOSE METRICS: Total DLP (mGy-cm): 1028.58 FINDINGS: Brain: No acute intracranial hemorrhage. No edema. No mass effect. There are stable ill-defined hypodense areas in the bilateral periventricular white matter suggestive of chronic small vessel ischemic changes. Stable periventricular calcification in the right basal ganglia compatible with benign finding. Cerebral ventricles: No hydrocephalus. The ventricles and sulci are prominent in size in keeping with brain atrophy. Paranasal sinuses: Visualized sinuses are unremarkable. No fluid levels. Mastoid air cells: No mastoid effusion. Bones: Unremarkable. No acute fracture. Soft tissues: Unremarkable. CT/CT head thrombolytic [id number] IMPRESSION: Stable chronic findings with no evidence of acute intracranial hemorrhage, mass or acute infarction. ASSESSMENT: ASPECTS (Beth Stroke Program Early CT Score) is 10.
--- NOTE | 2025-11-02 12:04 | XRR_ITS ---
PROCEDURE INFORMATION: Exam: XR Chest Exam date and time: 11/02/2025 12:16 PM Age: 89 years old Clinical indication: Other: AMS; Additional info: Weakness TECHNIQUE: Imaging protocol: Radiologic exam of the chest. Views: 1 view. COMPARISON: CT chest abd [id number] 11/01/2025 8:40 AM FINDINGS: Lungs: No consolidation. Small linear opacity in the left mid/lower lung suggestive of subsegmental atelectasis. Pleural spaces: No pleural effusion. No pneumothorax. Heart/Mediastinum: No cardiomegaly. Bones/joints: No acute findings. Intraperitoneal space: Surgical clips in the right upper quadrant. XR/XR chest 1V portable [id number] IMPRESSION: No acute findings. Subsegmental atelectasis in the left mid/lower lung. Small lung nodules documented on CT chest on 11/01/2025 are not clearly visualized on this film.
[2025-11-02 12:38] LABS: Hematocrit 36.2 % (36-47); Hemoglobin 11.60 g/dL (11.27-16.99); Mean Corpuscular HGB Conc 32.0 g/dL (30-55); Mean Corpuscular Hemoglobin 26.5 pg (27-33); Mean Corpuscular Volume 82.6 fl (85-98); Nucleated Red Blood Cells % 0 %; Platelet Count 369 10^3/cmm (157-399); Red Blood Count 4.38 10^6/uL (3.85-5.65); White Blood Count 9.17 10^3/uL (3.29-11.43)
[2025-11-02 12:58] LABS: INR 0.90 (0.8-1.2); Prothrombin Time 12.80 SECONDS (12.1-14.9)
[2025-11-02 12:59] LABS: Partial Thromboplastin Time 25.8 SECONDS (23.9-36.7)
[2025-11-02 13:03] LABS: Alanine Aminotransferase 6 U/L (0-33); Albumin Level 3.8 g/dL (3.5-5.2); Alkaline Phosphatase 130 U/L (35-105); Anion Gap 16.9 (5-19); Aspartate Amino Transferase 9 U/L (0-32); Blood Urea Nitrogen 41 mg/dL (8-23); Calcium 10.2 mg/dL (8.5-10.5); Carbon Dioxide 23 mmol/L (22-29); Chloride 97 mmol/L (98-107); Globulin 3.1 g/dL (1.3-4.6); Glucose 251 mg/dL (65-115); Osmolality Calculated 295 mOsm/kg (285-295); Potassium 3.9 mmol/L (3.5-5.1); Sodium 133 mmol/L (136-145); Total Protein 6.9 g/dL (6.6-8.7)
[2025-11-02 13:04] LABS: Lactic Sepsis W/Reflex 1.1 mmol/L (0.5-2.2)
[2025-11-02 13:22] LABS: Glucose Urine UA Trace (Normal); Nitrate Urine Negative (Negative); Specific Gravity, Urine 1.012 (1.005-1.030)
--- NOTE | 2025-11-02 13:27 | PC.NURSE ---
Assumed Pt. care at 1315, Pt. reports right hand and leg weakness pt. reports N/V for 3 days. Pt. denies other symptoms at this time. Pt. reports not taking BP meds this morning.
[2025-11-02 13:41] LABS: PCP Screen Urine Negative (Negative)
[2025-11-02] MEDS: hyDRALAzine 20 mg/mL INJ 1 mL 10 MG IVP (13:48)
--- NOTE | 2025-11-02 14:00 | PC.NURSE ---
Pts. daughter is concerned that H&H is low and may be the reason is weak. daughter states I wouldnt want mine that low
--- NOTE | 2025-11-02 15:09 | PC.PHAR ---
Daughter provided a [employer] portal medication list. Pt also verified them.
--- NOTE | 2025-11-02 15:33 | PC.NURSE ---
This RN called report to [facility] for pts. transfer report. Daughter signed.
== END 2025-11-02 16:42 | disposition short-term general hospital (02) ==
PROVIDERS: Emergency Provider Emergency Medicine; PCP Family Medicine
DX: N20.2 Calculus of kidney with calculus of ureter (principal); R53.1 Weakness; I10 Essential (primary) hypertension; Z90.5 Acquired absence of kidney; E11.22 Type 2 diabetes mellitus with diabetic chronic kidney disease; I12.9 Hypertensive chronic kidney disease with stage 1 through stage 4 chronic kidney disease, or unspecified chronic kidney disease; N18.9 Chronic kidney disease, unspecified; Z79.4 Long term (current) use of insulin; Z79.02 Long term (current) use of antithrombotics/antiplatelets; Z85.528 Personal history of other malignant neoplasm of kidney; N13.30 Unspecified hydronephrosis
CPT/HCPCS: 36415; 36416; 70450; 71045; 80053; 80306; 81001; 82962; 83605; 85025; 85610; 85730; 86140; 87040; 93005; 96374; 99285; J0360; J7030; J7040